=== PATIENT | female | born 1980 | race Caucasian/White ===

== ENCOUNTER 2017-05-31 12:04 | Inpatient (IN) | payer OTHER ==
[2017-05-31 13:24] VITALS: BMI 25.9
--- NOTE | 2017-05-31 14:26 | HP ---
Admission [facility] Chief Complaint: REHAB TX FOR DRUG TX Allergies/Adverse Reactions: Allergies Allergy/AdvReac Type Severity Reaction Status Date / Time No Known Allergies Allergy Verified 05/31/17 13:58 History of Present Illness: 37 Y/O H/F WITH A HX OF HEROIN DEPENDENCE SEEKING DETOX TX. PT IS IN [place]- [facility] ON METHADONE 40 MG PO DAILY. STATES LAST USE OF ALCOHOL WAS A WEEK AGO. Exam Limitations: No Limitations - Ebola screening Have you traveled outside of the country in the last 21 days: No (N) Have you had contact with anyone from an Ebola affected area: No Have you been sick,other than usual withdrawal symptoms: No Do you have a fever: No - Review of Systems Constitutional: Chills, Night Sweats, Changes in sleep EENT: reports: Blurred Vision, Tearing, Nose Congestion, Dental Problems ( CAVITY HX) Respiratory: reports: Shortness of Breath (HX ASTHMA), Wheezing Cardiac: reports: Lightheadedness GI: reports: Constipated (OIC-ON MMTP), Diarrhea, Nausea, Vomiting : reports: No Symptoms Reported Musculoskeletal: reports: Back Pain, Joint Pain (KNEES), Muscle Pain Integumentary: reports: Bruising (LOWER LEGS) Neuro: reports: Headache, Numbness, Seizure, Tingling, Unsteady Gait, Dizziness Endocrine: reports: No Symptoms Reported Hematology: reports: No Symptoms Reported Psychiatric: reports: Orientated x3, Anxious, Depressed Other Systems: Reviewed and Negative Patient History - Patient Medical History Hx Anemia: No Hx Asthma: Yes (ventolin) Hx Chronic Obstructive Pulmonary Disease (COPD): No Hx Cancer: No Hx Cardiac Disorders: No Hx Congestive Heart Failure: No Hx Hypertension: No Hx Hypercholesterolemia: No Hx Pacemaker: No HX Cerebrovascular Accident: No Hx Seizures: Yes (drug related-last episode was in 2015) Hx Dementia: No Hx Diabetes: No Hx Gastrointestinal Disorders: No Hx Liver Disease: No Hx Genitourinary Disorders: No Hx Sexually Transmitted Disorders: No Hx Renal Disease (ESRD): No Hx Thyroid Disease: No Hx Human Immunodeficiency Virus (HIV): No Hx Hepatitis C: No Hx Depression: Yes (zoloft) Hx Suicide Attempt: No Hx Bipolar Disorder: No Hx Schizophrenia: No - Patient Surgical History Past Surgical History: No Hx Neurologic Surgery: No Hx Cataract Extraction: No Hx Cardiac Surgery: No Hx Lung Surgery: No Hx Breast Surgery: No Hx Breast Biopsy: No Hx Abdominal Surgery: No Hx Appendectomy: No Hx Cholecystectomy: No Hx Genitourinary Surgery: No Hx Section: No Hx Orthopedic Surgery: No Hx Hysterectomy: No Anesthesia Reaction: No - PPD History Previous Implant?: Yes Documented Results: Positive w/o proof Results: CXR PPD to be Administered?: No - Reproductive History Patient is a Female of Child Bearing Age (11 -55 yrs old): Yes Last Menstrual Period: 05/11/17 Patient : No - Smoking Cessation Smoking history: Current every day smoker Have you smoked in the past 12 months: Yes Aproximately how many cigarettes per day: 5 Hx Chewing Tobacco Use: No Initiated information on smoking cessation: Yes 'Breaking Loose' booklet given: 05/31/17 - Substance & Tx. History Hx Alcohol Use: Yes Hx Substance Use: Yes Substance Use Type: Alcohol, Heroin Hx Substance Use Treatment: Yes (CURRENTLY AT [facility] ) - Substances Abused Heroin Route: Injection Frequency: Daily Amount used: 12-15 BAGS Age of first use: 21 Date of Last Use: 05/31/17 Alcohol Route: Oral Frequency: 1-2 times per week Amount used: Vodka unsure of amount Age of first use: 17 Family Disease History - Family Disease History Family Disease History: Heart Disease: Mother (HTN) Admission Physical Exam S - Vital Signs Vital Signs: Vital Signs - 24 hr 05/31/17 13:21 Temperature 98.1 F Pulse Rate 100 H Respiratory 18 Rate Blood Pressure 160/90 - Physical General Appearance: Yes: No Apparent Distress, Irritable, Anxious HEENTM: Yes: EOMI, Normocephalic, ALONSO, Pharynx Normal, Nasal Congestion, Rhinorrhea Respiratory: Yes: Chest Non-Tender, Lungs Clear, Normal Breath Sounds, No Respiratory Distress Neck: Yes: No masses,lesions,Nodules, Supple, Trachea in good position Breast: Yes: Breast Exam Deferred Cardiology: Yes: Regular Rhythm, Regular Rate, S1, S2 Abdominal: Yes: Normal Bowel Sounds, Non Tender, Soft Genitourinary: Yes: Other (N/C) Back: Yes: Within Normal Limits Musculoskeletal: Yes: full range of Motion, Gait Steady Extremities: Yes: Normal Range of Motion, Non-Tender Neurological: Yes: yard foreman II-XII NML intact, Fully Oriented, Alert, Motor Strength 5/5 Integumentary: Yes: Dry, Warm Lymphatic: Yes: Within Normal Limits - Diagnostic (1) Opioid dependence with withdrawal Current Visit: Yes Status: Chronic (2) Asthma Current Visit: Yes Status: Chronic Qualifiers: Asthma severity: mild Asthma persistence: unspecified Asthma complication type: uncomplicated Qualified Code(s): J45.909 - Unspecified asthma, uncomplicated; J45.909 - Unspecified asthma, uncomplicated; J45.909 - Unspecified asthma, uncomplicated (3) Nicotine dependence Current Visit: Yes Status: Acute Qualifiers: Nicotine product type: cigarettes Substance use status: in withdrawal Qualified Code(s): F17.213 - Nicotine dependence, cigarettes, with withdrawal; F17.213 - Nicotine dependence, cigarettes, with withdrawal (4) Alcohol dependence with uncomplicated withdrawal Current Visit: Yes Status: Chronic (5) Methadone maintenance therapy patient Current Visit: Yes Status: Chronic (6) Drug withdrawal seizure Current Visit: Yes Status: Suspected Qualifiers: Complication of substance-induced condition: with unspecified complication Qualified Code(s): F19.239 - Other psychoactive substance dependence with withdrawal, unspecified; F19.239 - Other psychoactive substance dependence with withdrawal, unspecified; F19.239 - Other psychoactive substance dependence with withdrawal, unspecified; R56.9 - Unspecified convulsions; R56.9 - Unspecified convulsions; R56.9 - Unspecified convulsions; R56.9 - Unspecified convulsions Cleared for Admission [facility] - Detox or Rehab Claeared for Rehab Admission: Yes S Breath Alcohol Content Breath Alcohol Content: 0 Urine Pregancy Test - Result Urine Test Results: Negative- NO Line Present Urine Drug Screen - Results Drug Screen Negative: No Urine Drug Screen Results: SAI-Cocaine, OPI-Opiates, MTD-Methadone Inpatient Rehab Admission - Initial Determination Are CD services needed?: Yes Free of communicable disease: Yes Not in need of hospitalization: Yes - Rehab Admission Criteria Previous failed treatment: Yes Patient is meeting Inpatient Rehab admission criteria:: Yes (REFERRED FROM [facility] DUE TO RELAPSE.)
[2017-05-31] MEDS ORDERED: diphenhydrAMINE HCL 50 MG CAPSULE PO PRN (14:43)
[2017-05-31] MEDS ORDERED: MAGNESIUM CITRATE 300 ML BOTTLE PO PRN (14:43)
[2017-05-31] MEDS ORDERED: IBUPROFEN 400 MG TABLET (FP) PO PRN (14:43)
[2017-05-31] MEDS ORDERED: guaiFENesin/D-METHORPHAN HB 10 ML UNIT-DOSE CUPS PO PRN (14:43)
[2017-05-31] MEDS ORDERED: MENTHOL/PHENOL 1 EACH UD MM PRN (14:43)
[2017-05-31] MEDS ORDERED: LOPERAMIDE HCL 2 MG CAPSULE PO PRN (14:43)
[2017-05-31] MEDS ORDERED: MAGNESIUM HYDROX 2400MG/30ML ORAL SUSPENSION 30 ML CUP PO PRN (14:43)
[2017-05-31] MEDS ORDERED: MAG HYDROX/AL HYDROX/SIMETH 30 ML UNIT-DOSE CUP PO PRN (14:43)
[2017-05-31] MEDS ORDERED: ACETAMINOPHEN 325 MG TABLET (FP) PO PRN (14:43)
[2017-05-31] MEDS ORDERED: P-EPHED 60MG/TRIPROLIDI 2.5MG TABLET PO PRN (14:43)
[2017-05-31] MEDS ORDERED: ALBUTEROL SO4 18 GM HFA INHALER IH PRN (14:48)
[2017-05-31] MEDS ORDERED: NICOTINE POLACRILEX 2 MG GUM BUC PRN (14:48)
[2017-05-31] MEDS ORDERED: PATIENT'S OWN MEDICATION (NON-FORMULARY) (Prednisone [Prednisone 50 Mg Tablets] 50 MG) PO SCH (15:00)
[2017-05-31] MEDS: NICOTINE 14 MG/24 HOURS TOPICAL PATCH TD SCH (15:30)
[2017-05-31] MEDS ORDERED: PNEUMOC 13-VAL CONJ-DIP CRM/PF 0.5 ML DISP.SYRIN IM ONE (16:11)
[2017-05-31 17:49] LABS: MCH 28.8 pg (25.7-33.7); MCHC 33.3 g/dl (32.0-36.0); MEAN CELL VOLUME 86.6 fl (80-96); MEAN PLT VOLUME 7.6 fl (7.5-11.1); PLATELET COUNT 324 K/MM3 (134-434); RDW 14.4 % (11.6-15.6); WHITE BLOOD COUNT 9.2 K/mm3 (4.0-10.0)
[2017-05-31] MEDS: PREDNISONE 40 MG, PREDNISONE 10 MG PO SCH (17:55)
[2017-05-31 18:07] LABS: URINE APPEARANCE CLOUDY; URINE BILIRUBIN NEGATIVE (NEGATIVE); URINE BLOOD NEGATIVE (NEGATIVE); URINE COLOR YELLOW; URINE GLUCOSE (UA) NEGATIVE (NEGATIVE); URINE KETONE NEGATIVE (NEGATIVE); URINE NITRITE NEGATIVE (NEGATIVE); URINE PROTEIN NEGATIVE (NEGATIVE); URINE UROBILINOGEN NEGATIVE mg/dL (0.2-1.0)
[2017-05-31 18:12] LABS: ALBUMIN 3.7 g/dl (3.4-5.0); ANION GAP 9 (8-16); CALCIUM 8.9 mg/dL (8.5-10.1); CO2 27 mmol/L (21-32); CREATININE 0.7 mg/dL (0.55-1.02); GLUCOSE,RANDOM 80 mg/dL (74-106); SGOT/AST 19 U/L (15-37); SGPT/ALT 32 U/L (12-78)
[2017-05-31 18:14] LABS: ALK PHOS 84 U/L (45-117); BILIRUBIN,TOTAL 0.5 mg/dL (0.2-1.0); TOT PROT 7.4 g/dl (6.4-8.2)
[2017-05-31] MEDS ORDERED: predniSONE 20 MG TABLET (UD) ONE (18:31)
[2017-05-31] MEDS: FLUTICASONE PROP 0.05% 16 GM NASAL SPRAY NS SCH (21:14)
[2017-05-31 22:00] LABS: URINE LEUK ESTERASE TRACE (NEGATIVE)
[2017-05-31] MEDS ORDERED: THIAMINE HCL 100 MG TABLET (FP) PO SCH (22:00)
[2017-05-31] MEDS: BUDESONIDE/FORMETEROL FUMARATE 160/4.5 mcg INHALER IH SCH (23:20)
[2017-06-01] MEDS ORDERED: TRIMETHOBENZAMIDE HCL 200MG/2ML INJ IM PRN (05:55)
[2017-06-01 07:54] VITALS: BP 113/73; PULSE 83; TEMP 97.7
[2017-06-01] MEDS ORDERED: METHADONE HCL 40 MG DISPERSABLE TABLET PO SCH (08:18)
[2017-06-01] MEDS ORDERED: PT OWN MED DRAWER 7, Y5N ONE (08:22)
--- NOTE | 2017-06-01 08:39 | PN ---
[facility] Progress Note Note: Rapid Response CAlled: patient was speaking with nure asking to go to ED radha she lost consciousness and rapid response called, she quickly regained consciousness, c/o zaeb pain and abdo pain with somewhat labored breathing o/e diffuse wheezing, VSS 134/85 o2 sat 100% on o2 mask pulse 75 rr 14 pateint deveoped second episode when she went quiet eyes rolled back but no seizure like activity noted. started vomiting on arrival of 911 a/p: r/o withdrawal seizures, acute asthma unlikely. Has not had AM methadone dose. ED notified s/w anabell Quintero staff informed will be transferred to [facility].
--- NOTE | 2017-06-01 09:40 | PN ---
[facility] Progress Note Note: Patient was transferred to ER of [facility] after seizure episode.See medical staff notes for details.
--- NOTE | 2017-06-01 09:50 | EKG ---
Test Reason : Blood Pressure : / mmHG Vent. Rate : 080 BPM Atrial Rate : 080 BPM P-R Int : 194 ms QRS Dur : 084 ms QT Int : 376 ms P-R-T Axes : 037 -27 008 degrees QTc Int : 433 ms NORMAL SINUS RHYTHM POOR R WAVE PROGRESSION NO PREVIOUS ECGS AVAILABLE Confirmed by JUAN JOSÉ HENDERSON MD ([id number]) on 06/01/2017 9:50:34 AM Referred By: Confirmed By:JUAN JOSÉ HENDERSON MD
[2017-06-01] MEDS: NICOTINE 14 MG/24 HOURS TOPICAL PATCH TD SCH (10:00)
[2017-06-01] MEDS ORDERED: PRENATAL VITAMINS W/ FOLIC ACID TABLET (FP) PO SCH (10:00)
[2017-06-01] MEDS: PREDNISONE 40 MG, PREDNISONE 10 MG PO SCH (10:00)
[2017-06-01] MEDS: FLUTICASONE PROP 0.05% 16 GM NASAL SPRAY NS SCH (10:00)
[2017-06-01] MEDS: BUDESONIDE/FORMETEROL FUMARATE 160/4.5 mcg INHALER IH SCH (10:00)
[2017-06-01 10:28] LABS: HIV 1 & 2 AB NEGATIVE; HIV 1 AGp24 NEGATIVE
[2017-06-01] MEDS ORDERED: PNEUMOCOCCAL 23 VACCINE 0.5 ML VIAL IM ONE (12:00)
[2017-06-01] MEDS ORDERED: FLU VACCINE QUAD 60 MCG/0.5 ML (MDV 17-18) IM ONE (12:00)
== END 2017-06-01 17:22 | disposition hospice, inpatient (51) | DRG 772 ==
LOC: YASAS 12:04 → Y3E 14:22
PROVIDERS: ADMIT Psychiatry & Neurology Psychiatry; ATTEND Psychiatry & Neurology Psychiatry
PROC: HZ42ZZZ Group Counseling for Substance Abuse Treatment, Cognitive-Behavioral (ICD-10-PCS; principal; 2017-05-31)
DX: F11.23 Opioid dependence with withdrawal (principal); F10.239 Alcohol dependence with withdrawal, unspecified; F17.210 Nicotine dependence, cigarettes, uncomplicated; J45.909 Unspecified asthma, uncomplicated; R55 Syncope and collapse; G40.89 Other seizures; R07.9 Chest pain, unspecified; R10.9 Unspecified abdominal pain; R06.02 Shortness of breath
CPT/HCPCS: 36415; 80053; 81003; 81015; 85027; 86593; 87389; 93005; 93010

== ENCOUNTER 2017-06-01 09:15 | Inpatient (IN) | payer OTHER ==
--- NOTE | 2017-06-01 09:25 | PDOC ---
History of Present Illness - General History Source: Patient Exam Limitations: No Limitations - History of Present Illness Initial Comments: 06/01/17 10:33 37 yr old female, with significant pmhx of polysubstance abuse (heroin, alcohol , xanax), asthma and alcohol withdrawal seizures, who presents today BIBA from [facility] s/p witnessed seizure. Security at [facility] witnessed the patient seizing in her bed this morning. EMS administered 4 mg of IV zofran in field. No injuries, no head trauma. The patient states that she also experienced multiple episodes of vomiting this morning since 6am. She notes that she had seizures when withdrawing previously, with the most recent being approximately 6 months ago. The last time she used heroin was last night and she drank alcohol 2 days ago. She usually drinks a half a pint per day. The patient started going to the methadone clinic at [facility] in [place] 2 weeks ago. She has not had her Methadone dose today. Denies fever, chills. Denies chest pain, SOB. Denies visual changes. Allergies: none reported <Cherelle Robb - Last Filed: 06/01/17 12:58> <Jaylene Cox - Last Filed: 06/01/17 14:02> - General Stated Complaint: SEIZURE Time Seen by Provider: 06/01/17 09:22 Past History <Cherelle Robb - Last Filed: 06/01/17 12:58> - Past Medical History Anemia: No Asthma: Yes Cancer: No Cardiac Disorders: No CVA: No COPD: No CHF: No Dementia: No Diabetes: No GI Disorders: Yes (Gastritis) Disorders: No HTN: No Hypercholesterolemia: No Kidney Stones: No Liver Disease: No Seizures: Yes (with withdrawal ) Thyroid Disease: No - Surgical History Abdominal Surgery: No Appendectomy: No Cardiac Surgery: No Cholecystectomy: No Lung Surgery: No Neurologic Surgery: No Orthopedic Surgery: No - Reproductive History PID: No - Suicide/Smoking/Psychosocial Hx Smoking History: Current every day smoker Have you smoked in the past 12 months: Yes Number of Cigarettes Smoked Daily: 5 'Breaking Loose' booklet given: 05/31/17 Hx Alcohol Use: Yes Drug/Substance Use Hx: Yes Substance Use Type: Alcohol, Heroin Hx Substance Use Treatment: Yes <Jaylene Cox - Last Filed: 06/01/17 14:02> - Past Medical History Allergies/Adverse Reactions: Allergies Allergy/AdvReac Type Severity Reaction Status Date / Time No Known Allergies Allergy Verified 05/31/17 13:58 Home Medications: Ambulatory Orders Albuterol Sulfate Inhaler - [Ventolin HFA Inhaler -] 2 inh PO Q4H PRN #1 inhaler 02/02/16 Budesonide/Formeterol Fumarate [SYMBICORT 160/4.5mcg -] 1 inh PO BID #1 inhaler 02/02/16 Fluticasone Propionate [Flonase Allergy Relief] 1 spray NS ASDIR 05/31/17 Omeprazole 40 mg PO DAILY 05/31/17 Prednisone [Prednisone 50 MG TABLETS] 50 mg PO DAILY 05/31/17 Quetiapine Fumarate [Seroquel -] 100 mg PO HS 05/31/17 Trazodone HCl [Desyrel -] 50 mg PO HS 05/31/17 Methadone [Dolophine -] 40 mg PO DAILY 06/01/17 Review of Systems - Review of Systems Able to Perform ROS?: Yes Comments:: 06/01/17 10:35 GENERAL/CONSTITUTIONAL: No fever or chills. No weakness. HEAD, EYES, EARS, NOSE AND THROAT: No change in vision. No ear pain or discharge. No sore throat. GASTROINTESTINAL: +nausea, +vomiting. No diarrhea or constipation. GENITOURINARY: No dysuria, frequency, or change in urination. CARDIOVASCULAR: No chest pain or shortness of breath. RESPIRATORY: No cough, wheezing, or hemoptysis. MUSCULOSKELETAL: No joint or muscle swelling or pain. No neck or back pain. SKIN: No rash NEUROLOGIC: +seizure. No headache, vertigo, or change in strength/sensation. ENDOCRINE: No increased thirst. No abnormal weight change. HEMATOLOGIC/LYMPHATIC: No anemia, easy bleeding, or history of blood clots. ALLERGIC/IMMUNOLOGIC: No hives or skin allergy. <Cherelle Robb - Last Filed: 06/01/17 12:58> *Physical Exam - Vital Signs Last Vital Signs Temp Pulse Resp BP Pulse Ox 99.2 F 57 L 19 128/64 06/01/17 09:30 06/01/17 09:30 06/01/17 09:30 06/01/17 09:30 - Physical Exam Comments: 06/01/17 10:36 Constitutional: Awake, alert, oriented. Appears uncomfortable. Head: Normocephalic. Atraumatic Eyes: PERRL. EOMI. Conjunctivae are not pale. ENT: Mucous membranes are moist and intact. Posterior pharynx without exudates or erythema. Uvula midline. Neck: Supple. Full ROM. No lymphadenopathy. Cardiovascular: Regular rate. Regular rhythm. S1, S2 regular. Distal pulses are 2+ and symmetric. Pulmonary/Chest: No evidence of respiratory distress. Clear to auscultation bilaterally No wheezing, rales or rhonchi. Abdominal: Mild epigastric tenderness to palpation. Soft and non-distended. No rebound, guarding or rigidity. No organomegaly. No palpable masses. Good bowel sounds. Back: No CVA tenderness. Musculoskeletal: No edema. No cyanosis. No clubbing. Full range of motion in all extremities. Nocalf tenderness. Radial/pedal pulses are intact and 2+ bilaterally Skin: Skin is warm and dry. No petechiae. No purpura. Neurological: Alert and oriented to person, place, and time. Cranial nerves II -XII are grossly intact. Normal speech. Strength is grossly symmetric. No sensory deficits. Psychiatric: Good eye contact. Normal interaction, affect and behavior. <Cherelle Robb - Last Filed: 06/01/17 12:58> Heart Score/ECG Review - ECG Intrepretation Comment:: 06/01/17 10:30 sinus at 67, nl axis, t wave inversions III, avf, poor r wave progression <Jaylene Cox - Last Filed: 06/01/17 14:02> ED Treatment Course - LABORATORY CBC & Chemistry Diagram: 06/01/17 10:40 06/01/17 10:40 - Medications Given in the ED: ED Medications Discontinued Medications Generic Name Dose Route Start Last Admin Trade Name Freq PRN Reason Stop Dose Admin Famotidine/Sodium Chloride 50 mls @ 100 mls/hr 06/01/17 09:51 06/01/17 10:33 Pepcid 20 Mg Premixed Ivpb - IVPB 06/01/17 10:20 100 mls/hr ONCE ONE Administration Ondansetron HCl 4 mg 06/01/17 09:51 06/01/17 10:33 Zofran Injection IVPUSH 06/01/17 09:52 4 mg ONCE ONE Administration Sodium Chloride 1,000 ml 06/01/17 09:51 06/01/17 10:30 Normal Saline - IV 06/01/17 09:52 1,000 ml ONCE ONE Administration <Cherelle Robb - Last Filed: 06/01/17 12:58> - LABORATORY CBC & Chemistry Diagram: 06/01/17 10:40 06/01/17 10:40 <Jaylene Cox - Last Filed: 06/01/17 14:02> Medical Decision Making - Medical Decision Making 06/01/17 10:25 a/p: 37yo female with polysubstance abuse (15bags heroin, xanax, half a fifth) with seizure at detox today -hx of alcohol withdrawal seizures -last etoh use 2 days ago -currently no longer post ictal -was post ictal per EMS -labs, ekg, cxr, lipase, ivf hydration, dose methadone, nausea control, ativan for nausea and ETOH withdrawal seizure. 06/01/17 12:57 pt with persistent n/v and had an alcohol withdrawal seizure. unable to tolerate PO intake. Will admit for further treatment. 06/01/17 14:00 case discussed with IM resident, accepts pt under Dr. Wagoner. Will admit for intracatble n/v and alcohol withdrawal seizure this am. <Jaylene Cox - Last Filed: 06/01/17 14:02> *DC/Admit/Observation/Transfer - Attestations Scribe Attestion: 06/01/17 10:37 Documentation prepared by TODD Rios, acting as anesthesiology medical doctor for Jaylene Cox DO. <Cherelle Robb - Last Filed: 06/01/17 12:58> - Discharge Dispostion Admit: Yes - Attestations Physician Attestion: 06/01/17 14:02 I, Dr. Jaylene Cox DO, attest that this document has been prepared under my direction and personally reviewed by me in its entirety. I further attest, that it accurately reflects all work, treatment, procedures and medical decision -making performed by me. <Jaylene Cox - Last Filed: 06/01/17 14:02> Diagnosis at time of Disposition: Seizure, Intractable vomiting with nausea, Methadone maintenance therapy patient - Discharge Dispostion Condition at time of disposition: Fair
[2017-06-01 09:33] VITALS: BMI 25.9
[2017-06-01] MEDS ORDERED: FAMOTIDINE 20 MG/50 ML IVPB 50 ML IVPB ONE ×3 (09:51→22:00)
[2017-06-01] MEDS ORDERED: ONDANSETRON 4 MG/2 ML VIAL IVPUSH ONE (09:51)
[2017-06-01] MEDS ORDERED: SODIUM CHLORIDE 0.9% 1000 ML INFUS.BAG IV ONE (09:51)
[2017-06-01] MEDS ORDERED: ONDANSETRON 4 MG/2 ML VIAL ONE (10:11)
[2017-06-01] MEDS ORDERED: THIAMINE HCL 200 MG/2 ML VIAL IVPB ONE (10:14)
[2017-06-01] MEDS ORDERED: DICYCLOMINE HCL 20 MG/2 ML AMPUL IM ONE (10:15)
[2017-06-01] MEDS ORDERED: FOLIC ACID 1 MG TABLET (FP) PO ONE (10:16)
[2017-06-01] MEDS ORDERED: METHADONE HCL 10 MG TABLET PO ONE (10:16)
[2017-06-01] MEDS ORDERED: LORazepam 2 MG/ML SDV VIAL ONE ×2 (10:39→13:01)
[2017-06-01] MEDS ORDERED: THIAMINE HCL 200 MG/2 ML VIAL ONE (10:39)
[2017-06-01] MEDS ORDERED: FOLIC ACID 1 MG TABLET (FP) ONE (10:40)
[2017-06-01 11:24] LABS: BASOPHIL 0.3 % (0-2.0); EOSINOPHIL 0.1 % (0-4.5); MCH 27.9 pg (25.7-33.7); MCHC 32.2 g/dl (32.0-36.0); MEAN CELL VOLUME 86.6 fl (80-96); MEAN PLT VOLUME 7.1 fl (7.5-11.1); NEUTROPHILS 87.2 % (42.8-82.8); PLATELET COUNT 331 K/MM3 (134-434); RDW 14.3 % (11.6-15.6); WHITE BLOOD COUNT 18.7 K/mm3 (4.0-10.0)
[2017-06-01 11:38] LABS: ALBUMIN 3.6 g/dl (3.4-5.0); ANION GAP 10 (8-16); CALCIUM 9.3 mg/dL (8.5-10.1); CO2 22 mmol/L (21-32); CREATININE 0.7 mg/dL (0.55-1.02); GLUCOSE,RANDOM 103 mg/dL (74-106); SGPT/ALT 30 U/L (12-78)
[2017-06-01 11:40] LABS: ALK PHOS 84 U/L (45-117); BILIRUBIN,TOTAL 0.8 mg/dL (0.2-1.0); TOT PROT 7.5 g/dl (6.4-8.2)
[2017-06-01 11:41] LABS: MAGNESIUM 2.2 mg/dL (1.8-2.4); SGOT/AST 26 U/L (15-37)
--- NOTE | 2017-06-01 12:01 | EKG ---
Test Reason : Blood Pressure : / mmHG Vent. Rate : 067 BPM Atrial Rate : 067 BPM P-R Int : 170 ms QRS Dur : 092 ms QT Int : 412 ms P-R-T Axes : 013 -27 -06 degrees QTc Int : 435 ms NORMAL SINUS RHYTHM WITH SINUS ARRHYTHMIA POOR R WAVE PROGRESSION WHEN COMPARED WITH ECG OF 31-MAY-2017 20:03, NO SIGNIFICANT CHANGE WAS FOUND Confirmed by JUAN JOSÉ HENDERSON MD ([id number]) on 06/01/2017 12:01:05 PM Referred By: Confirmed By:JUAN JOSÉ HENDERSON MD
[2017-06-01] MEDS ORDERED: METHADONE HCL 10 MG TABLET ONE (12:05)
--- NOTE | 2017-06-01 14:21 | HP ---
CHIEF COMPLAINT: ETOH withdrawal seizure this morning PCP:Dr. Kevin in [place] HISTORY OF PRESENT ILLNESS: 37 yr old woman with asthma, polysubstance abuse transferred from [facility] due to witnessed seizure with urinary incontinence at 8AM. She was admitted to [facility] yesterday at 2pm. She has been drinking 1/2 pint of vodka occasionally mixed with beer for past week, "3 pills of large xanax" Wed night and 5 bags of IV heroin daily. Last use of vodka/heroin and xanax was sunday. She has been having intermittent vomiting throughout the week. She started drinking 1 week ago because of depressive symptoms. She thinks she have fallen but does not know, there is a possibility of LOC. A/w headache, blurry vision, trouble swallowing to solid food due to the persistent vomiting and increase in urine frequency. recently seen at [facility] ED for asthma exacerbation last week, she was supposed to be on perdnisone 40mg po daily for 4 days but she never took it and was started on it at [facility]. ER course was notable for: (1) thiamine/folate (2) IVF (3) pepcid Recent Travel: [facility] PAST MEDICAL HISTORY: asthma, depression, polysubstance abuse PAST SURGICAL HISTORY: denies Social History: Smoking: daily Alcohol: daily Drugs: heroin, methadone Family History: both parents, 5 sisters and one 6-yr old daughter all healthy. denies fhx of htn, dm, psych conditions, Allergies No Known Allergies Allergy (Verified 05/31/17 13:58) HOME MEDICATIONS: Home Medications Medication Instructions Recorded Albuterol Sulfate Inhaler - 2 inh PO Q4H PRN #1 inhaler 02/02/16 [Ventolin HFA Inhaler -] Budesonide/Formeterol Fumarate 1 inh PO BID #1 inhaler 02/02/16 [SYMBICORT 160/4.5mcg -] Fluticasone Propionate [Flonase 1 spray NS ASDIR 05/31/17 Allergy Relief] Omeprazole 40 mg PO DAILY 05/31/17 Prednisone [Prednisone 50 MG 50 mg PO DAILY 05/31/17 TABLETS] Quetiapine Fumarate [Seroquel -] 100 mg PO HS 05/31/17 Trazodone HCl [Desyrel -] 50 mg PO HS 05/31/17 Methadone [Dolophine -] 40 mg PO DAILY 06/01/17 REVIEW OF SYSTEMS CONSTITUTIONAL: Absent: fever, chills, diaphoresis, generalized weakness, malaise, loss of appetite, weight change HEENT: Present: difficulty swallowing, Absent: rhinorrhea, nasal congestion, throat pain, throat swelling, mouth swelling, ear pain, eye pain, visual changes CARDIOVASCULAR: Absent: chest pain, syncope, palpitations, irregular heart rate, lightheadedness , peripheral edema RESPIRATORY: Absent: cough, shortness of breath, dyspnea with exertion, orthopnea, wheezing, stridor, hemoptysis GASTROINTESTINAL: Present: nausea, vomiting, Absent: abdominal pain, abdominal distension, diarrhea, constipation, melena, hematochezia GENITOURINARY: Present: urinary frequency Absent: dysuria,, urgency, hesitancy, hematuria, flank pain, genital pain MUSCULOSKELETAL: Absent: myalgia, arthralgia, joint swelling, back pain, neck pain SKIN: Absent: rash, itching, pallor HEMATOLOGIC/IMMUNOLOGIC: Absent: easy bleeding, easy bruising, lymphadenopathy, frequent infections ENDOCRINE: Absent: unexplained weight gain, unexplained weight loss, heat intolerance, cold intolerance NEUROLOGIC: Present: headache, bladder incontenence post-seizure Absent: focal weakness or paresthesias, dizziness, unsteady gait, seizure, mental status changes, bowel incontinence PSYCHIATRIC: Absent: anxiety, depression, suicidal or homicidal ideation, hallucinations. PHYSICAL EXAMINATION GENERAL: Awake, alert, in no acute distress. HEAD: Normal with no signs of trauma. EYES: Pupils equal, round and reactive to light, extraocular movements intact, sclera anicteric, conjunctiva clear. No lid lag. EARS, NOSE, THROAT: oropharynx clear without exudates. dry mucous membranes. mildly erythematic pharynx NECK: Normal range of motion, supple without lymphadenopathy, JVD, or masses. right lower neck with hyperpigmented puncture site where pt injects heroin. LUNGS: Breath sounds equal, clear to auscultation bilaterally. fine expiratory wheezes R>L, quiet at bases. No accessory muscle use. HEART: Regular rate and rhythm, normal S1 and S2 without murmur, rub or gallop. ABDOMEN: Soft, tender in epigastrium and LLQ, not distended, normoactive bowel sounds, no guarding, no rebound, no masses. No hepatomegaly or splenomegaly. carter's negative, rovsings neg, obturator and psoas neg. MUSCULOSKELETAL: Normal range of motion at all joints. No bony deformities or tenderness. + CVA on left. right buttox TTP, right hip TTP. overlying skin intact, no erythema, no swelling/bruises. posterior left knee ttp, no swelling/ bruising noted, skin intact. no calf tenderness b/l. UPPER EXTREMITIES: 2+ radial pulses, warm, well-perfused. No cyanosis. No clubbing. No peripheral edema. right forearm with well-healed scar. LOWER EXTREMITIES: 2+ distal pulses, warm, well-perfused. 1+ peripheral edema. NEUROLOGICAL: Cranial nerves II-XII intact. Normal speech. facial symmetry, b/l : 5/5 handgrip, 4/5 b/l hip extension, 5/5 dorsi/plantar flexion, 5/5 knee extension/flexion. PSYCHIATRIC: Cooperative. Good eye contact. Appropriate mood and affect. SKIN: Warm, dry, normal turgor, no rashes or lesions noted, normal capillary refill. Active Medications Chlordiazepoxide HCl (Librium -) 25 mg PO Q4H PRN PRN Reason: WITHDRAWAL(CONT SUBST) Stop: 06/04/17 14:23 Chlordiazepoxide HCl (Librium -) 50 mg PO [id number] [facility] Stop: 06/02/17 11:01 Chlordiazepoxide HCl (Librium -) 25 mg PO [id number] [facility] Stop: 06/03/17 11:01 Chlordiazepoxide HCl (Librium -) 15 mg PO [id number] [facility] Stop: 06/04/17 11:01 Enoxaparin Sodium (Lovenox -) 40 mg SQ DAILY [facility] Sodium Chloride (Normal Saline -) 1,000 mls @ 125 mls/hr IV ASDIR [facility] Last Admin: 06/01/17 14:42 Dose: 125 mls/hr Famotidine/Sodium Chloride (Pepcid 20 Mg Premixed Ivpb -) 50 mls @ 100 mls/hr IVPB ONCE ONE Stop: 06/01/17 22:29 Multivitamins/Minerals (Theragran-M) 1 each PO DAILY [facility] Prochlorperazine Edisylate (Compazine Injection -) 2.5 mg IVPB Q4H PRN PRN Reason: NAUSEA AND/OR VOMITING Last Admin: 06/01/17 16:59 Dose: 2.5 mg Quetiapine Fumarate (Seroquel -) 100 mg PO HS [facility] Thiamine HCl (Vitamin B1 -) 100 mg PO DAILY [facility] Trazodone HCl (Desyrel -) 50 mg PO HS [facility] ASSESSMENT/PLAN: 37 yr old woman with asthma, polysubstance abuse presents with withdrawal seizure and intractable vomiting likely due to polysubstance withdrawal. #ETOH - CIWA 9/persistent vomiting - librium taper for withdrawals - PO challenge with regular diet - combizene prn for nausea - monitor on tele for further seizure activity - thiamine and MVI - IVF NS @125cc/hr #Polysubstance withdrawal - etoh: librium taper - heroin: methadone 50mg, confirmed [place] jf [phone] by ED - nicotine: defer for now, pt not requesting - consult Dr. Reyez #Asthma - breathing RA comfortable, 100% sat, defer prednisone for now #Leucocytosis - likely reactive to vomiting/in setting of recent steroid use. - patient is afebrile without s/s of infection(no cough, diarrhea, dysuria) - defer abx for now #Depression - trazodone 50mg po daily - sertraline 100mg po daily - denies SI #diet: regular #Dvt: lovenox daily #Dispo: if no further seizure activity and no electrolyte abnormalities can be transferred to [facility] in the AM to continue detox Visit type - Emergency Visit Emergency Visit: Yes ED Registration Date: 06/01/17 Care time: The patient presented to the Emergency Department on the above date and was hospitalized for further evaluation of their emergent condition. - New Patient This patient is new to me today: Yes Date on this admission: 06/01/17 - Critical Care Critical Care patient: No
[2017-06-01] MEDS ORDERED: chlordiazePOXIDE HCL 25 MG CAPSULE PO PRN (14:24)
[2017-06-01] MEDS ORDERED: SODIUM CHLORIDE 1,000 ML IV SCH (14:30)
[2017-06-01] MEDS: PROCHLORPERAZINE INJECTION 10 MG/2 ML VIAL IVPB PRN ×2 (16:59→22:03)
--- NOTE | 2017-06-01 17:39 | PN ---
Teaching Attending Note Name of Resident: Arjun Young ATTENDING PHYSICIAN STATEMENT I saw and evaluated the patient. I reviewed the resident's note and discussed the case with the resident. I agree with the resident's findings and plan as documented. SUBJECTIVE:37yo F with PMH continuous polysubstance dependence (ETOH, xanax and heroin IV) went to [facility] for detox yesterday. Today had witnessed seizure with urinary incontinence. pt has no recollection of what happened. admits to intermittent vomiting over the past week. She was at another hospital a week ago and was supposed to take steroids for which she never did. she states her last drink and xanax was 2 days ago. Last used heroin yesterday (10 bags IV). states she had a seizure 2 years ago after stopping BZD. that she has stopped drinking several times without having a seizure. admits to feeling anxious at this time. denies CP, SOB, fever, chills, auditory/visual/tactile hallucinations. OBJECTIVE: Last Vital Signs Temp Pulse Resp BP Pulse Ox 98.4 F 64 17 136/84 96 06/01/17 14:52 06/01/17 14:52 06/01/17 14:52 06/01/17 14:52 06/01/17 14:52 General lethargic, mildly anxious CV S1 S2 RRR no murmur/rub/gallop Lungs CTA B/L no wheezing/rales/rhonchi Abdomen soft NT/ND no rebound or guarding Extremities +tremors ASSESSMENT AND PLAN: 37yo F with PMH depression and continuous polysubstance dependence (ETOH, xanax and heroin IV) on methadone was sent from [facility] after witnessed seizure 1. Witnessed seizure- withdrawal from ETOH vs BZD. tele admission. continuos cardiac monitoring. aspiration precautions, seizure precautions. no indication for antieleptics at this time. pt has desire to be clean and stop using. if pt is unable to maintain sobriety will need to consider prophylactic antieleptics 2. Acute heroin/ETOH withdrawal-CIWA 11. started on librium taper. on methadone taper per [facility] Gonzales on 50mg, will consult detox. counseled on need for cessation. received banana bag in the ER. will continue IVF, thiamine, folate, MVI. will transfer back to [facility] once medically optimized 3. Leukocytosis- likely reactive. was given steroid dose yesterday. pt is afebrile. no sign of infection. CXR clear. no indication for abx at this time 4. Depression- resume home medications. QTc WNL 5. DVT ppx- lovenox 6. if remains seizure free x24H will send to [facility] tomorrow to complete detox and inpatient rehab
[2017-06-01] MEDS: chlordiazePOXIDE HCL 25 MG CAPSULE PO SCH ×2 (17:52→22:08)
--- NOTE | 2017-06-01 17:59 | CONSULT ---
Consult Detox [facility] Reason for Current Admission/Consult: alcohol withdrawal seizures - Alcohol/Substance Use Hx Alcohol Use: Yes - Past Medical History ...LMP: 05/11/17
[2017-06-01 18:43] LABS: URINE APPEARANCE CLEAR; URINE BILIRUBIN NEGATIVE (NEGATIVE); URINE BLOOD NEGATIVE (NEGATIVE); URINE COLOR YELLOW; URINE GLUCOSE (UA) NEGATIVE (NEGATIVE); URINE KETONE 1+ (NEGATIVE); URINE NITRITE NEGATIVE (NEGATIVE); URINE PROTEIN NEGATIVE (NEGATIVE); URINE UROBILINOGEN NEGATIVE mg/dL (0.2-1.0)
[2017-06-01 21:50] LABS: URINE LEUK ESTERASE Negative (NEGATIVE)
[2017-06-01] MEDS ORDERED: QUEtiapine FUMARATE 50 MG TABLET PO SCH (22:00)
[2017-06-01] MEDS ORDERED: traZODone HCL 50 MG TABLET (FP) PO SCH (22:00)
[2017-06-02] MEDS: chlordiazePOXIDE HCL 25 MG CAPSULE PO SCH ×2 (05:56→11:25)
[2017-06-02 07:25] LABS: BASOPHIL 0.5 % (0-2.0); MCHC 32.6 g/dl (32.0-36.0); MEAN CELL VOLUME 85.7 fl (80-96); MEAN PLT VOLUME 6.9 fl (7.5-11.1); PLATELET COUNT 306 K/MM3 (134-434); RDW 14.5 % (11.6-15.6)
[2017-06-02 08:05] LABS: ANION GAP 10 (8-16); CALCIUM 7.9 mg/dL (8.5-10.1); CO2 23 mmol/L (21-32); GLUCOSE,RANDOM 79 mg/dL (74-106)
[2017-06-02 08:08] LABS: CREATININE 0.8 mg/dL (0.55-1.02)
[2017-06-02 09:13] VITALS: BP 126/76; PULSE 66; TEMP 98.6
--- NOTE | 2017-06-02 09:21 | DS ---
Physical Exam: SUBJECTIVE: Patient seen and examined. asymptomatic. denies CP, SOB, fever, chills, N/V/C/D recalls most of the events yesterday but not the seizure. states she was at [facility] and had intractable vomiting and was sent here for evaluation. was told she had a seziure but does not recall that. OBJECTIVE: Vital Signs Period Temp Pulse Resp BP Sys/Waller Pulse Ox Last 24 Hr 98.4 F-99 F 64-90 17-18 104-136/66-84 96-100 PHYSICAL EXAM GENERAL: The patient is drowsy but easily arrousable to verbal stimuli, oriented x3, alert, and fully oriented, in no acute distress. HEAD: Normal with no signs of trauma. EYES: PERRL, extraocular movements intact, sclera anicteric, conjunctiva clear. ENT: Ears normal, nares patent, oropharynx clear without exudates, moist mucous membranes. NECK: Trachea midline, full range of motion, supple. LUNGS: Breath sounds equal, clear to auscultation bilaterally, no wheezes, no crackles, no accessory muscle use. HEART: Regular rate and rhythm, S1, S2 without murmur, rub or gallop. ABDOMEN: Soft, nontender, nondistended, normoactive bowel sounds, no guarding, no rebound, no hepatosplenomegaly, no masses. EXTREMITIES: 2+ pulses, warm, well-perfused, no edema. NEUROLOGICAL: Cranial nerves II through XII grossly intact. Normal speech, gait not observed. PSYCH: Normal mood, normal affect. SKIN: Warm, dry, normal turgor, no rashes or lesions noted. LABS Laboratory Results - last 24 hr 06/01/17 06/02/17 06/02/17 17:12 06:45 06:45 WBC 12.0 H D RBC 4.68 Hgb 13.1 Hct 40.1 MCV 85.7 MCH 28.0 MCHC 32.6 RDW 14.5 Plt Count 306 MPV 6.9 L Neutrophils % 75.0 Lymphocytes % 17.8 D Monocytes % 5.7 Eosinophils % 1.0 D Basophils % 0.5 Sodium 140 Potassium 3.6 Chloride 107 Carbon Dioxide 23 Anion Gap 10 BUN 14 Creatinine 0.8 Random Glucose 79 D Calcium 7.9 L Urine Color Yellow Urine Appearance Clear Urine pH 6.0 Ur Specific Mary D >= 1.030 H Urine Protein Negative Urine Glucose (UA) Negative Urine Ketones 1+ H Urine Blood Negative Urine Nitrite Negative Urine Bilirubin Negative Urine Urobilinogen Negative Ur Leukocyte Esterase Negative Urine HCG, Qual Negative HOSPITAL COURSE: Date of Admission:06/01/17 Date of Discharge: 06/02/17 admitting diagnosis: ETOH withdrawal seizure, ETOH withdrawals Pre hospital course 37yo F with PMH continuous polysubstance dependence (ETOH, xanax and heroin IV) went to [facility] for detox yesterday. Today had witnessed seizure with urinary incontinence. pt has no recollection of what happened. admits to intermittent vomiting over the past week. She was at another hospital a week ago and was supposed to take steroids for which she never did. she states her last drink and xanax was 2 days ago. Last used heroin yesterday (10 bags IV). states she had a seizure 2 years ago after stopping BZD. that she has stopped drinking several times without having a seizure. admits to feeling anxious at this time. denies CP, SOB, fever, chills, auditory/visual/tactile hallucinations. Subsequent hospital course Admitted to [facility] for continuous cardiac monitoring. no witnessed seizures while hospitalized. pt was IV hydrated and continued on librium taper and methadone that was confirmed at [facility]. no repeat episodes while in the hospital. no events on cardiac monitoring. diet was advanced and tolerated. evaluated by detox specialist here. pt was d/c to return to [facility] to continue detox and then inpatient rehab. pt was counseled on need for drug abstinence. Minutes to complete discharge: 40 Discharge Summary Reason For Visit: INTRACTABLE VOMITING WITH NAUSEA Current Active Problems Intractable nausea and vomiting (Acute) Nicotine dependence (Acute) Seizure (Acute) Alcohol dependence with uncomplicated withdrawal (Chronic) Asthma (Chronic) Methadone maintenance therapy patient (Chronic) Opioid dependence with withdrawal (Chronic) Condition: Fair - Instructions Diet, Activity, Other Instructions: You were admitted to the hospital due to a seizure you had at [facility]. This likely occurred as you stopped drinking alcohol and xanax. The best way to prevent this from happening again in the future is to NOT drink alcohol or use any other illicit substances that are not prescribed to you by a doctor. You are being sent back to [facility] to complete your detox and enter into inpatient rehab to help you from using again in the future. If you continue to use illicit substances you put yourself at risk of early heart disease, liver failure, and infections. Please use the support systems that [facility] will set up for you to keep clean. Follow up with your primary care doctor once you complete the inpatient program Return to the ER for chest pain, or repeat seizures. - Home Medications Comprehensive Discharge Medication List: Ambulatory Orders Albuterol Sulfate Inhaler - [Ventolin HFA Inhaler -] 2 inh PO Q4H PRN #1 inhaler 02/02/16 Budesonide/Formeterol Fumarate [SYMBICORT 160/4.5mcg -] 1 inh PO BID #1 inhaler 02/02/16 Fluticasone Propionate [Flonase Allergy Relief] 1 spray NS ASDIR 05/31/17 Omeprazole 40 mg PO DAILY 05/31/17 Quetiapine Fumarate [Seroquel -] 100 mg PO HS 05/31/17 Trazodone HCl [Desyrel -] 50 mg PO HS 05/31/17 Methadone [Dolophine -] 40 mg PO DAILY 06/01/17 This patient is new to me today: No Emergency Visit: Yes ED Registration Date: 06/01/17 Care time: The patient presented to the Emergency Department on the above date and was hospitalized for further evaluation of their emergent condition. Critical Care patient: No - Discharge Referral Referred to [facility].: No
[2017-06-02] MEDS ORDERED: METHADONE HCL 10 MG TABLET PO SCH (10:00)
[2017-06-02] MEDS ORDERED: MULTIVITAMINS THER W-MINERALS COMBO TABLET (FP) PO SCH (10:00)
[2017-06-02] MEDS ORDERED: ENOXAPARIN NA (PORCINE) 40 MG/0.4 ML DISP.SYRIN SQ SCH (10:00)
[2017-06-02] MEDS ORDERED: THIAMINE HCL 100 MG TABLET (FP) PO SCH (10:00)
[2017-06-02] MEDS ORDERED: chlordiazePOXIDE HCL 25 MG CAPSULE PO SCH (17:00)
[2017-06-03] MEDS ORDERED: chlordiazePOXIDE 5 MG CAPSULE PO SCH (17:00)
== END 2017-06-02 12:54 | disposition other institution (70) | DRG 53 ==
LOC: JER 09:15 → JERBED 14:03 → UNDOADMIN 14:10 → J4W 15:10
PROVIDERS: ADMIT Internal Medicine; ATTEND Internal Medicine
PROC: HZ2ZZZZ Detoxification Services for Substance Abuse Treatment (ICD-10-PCS; principal; 2017-06-01)
DX: G40.89 Other seizures (principal); J45.909 Unspecified asthma, uncomplicated; K29.60 Other gastritis without bleeding; R11.2 Nausea with vomiting, unspecified; F32.9 Major depressive disorder, single episode, unspecified; F19.90 Other psychoactive substance use, unspecified, uncomplicated; F10.230 Alcohol dependence with withdrawal, uncomplicated; Y90.9 Presence of alcohol in blood, level not specified; D72.828 Other elevated white blood cell count; N39.498 Other specified urinary incontinence; F11.23 Opioid dependence with withdrawal; Z91.14 Patient's other noncompliance with medication regimen
CPT/HCPCS: 36415; 71010-TC; 80048; 80053; 81003; 83690; 83735; 84703; 85025; 93005; 93010; 99285-25

== ENCOUNTER 2017-06-02 16:44 | Inpatient (IN) | payer OTHER ==
[2017-06-02 17:26] VITALS: BMI 38.0
--- NOTE | 2017-06-02 18:07 | HP ---
CIWA Score - CIWA Score Nausea/Vomitin-No Nausea/No Vomiting Muscle Tremors: 3 Anxiety: 2 Agitation: 3 Paroxysmal Sweats: 3 Orientation: 0-Oriented Tacttile Disturbances: 0-None Auditory Disturbances: 0-None Visual Disturbances: 0-None Headache: 0-None Present CIWA-Ar Total Score: 11 Admission ROS BHS - HPI Chief Complaint: Withdrawal seizure while in rehab Allergies/Adverse Reactions: Allergies Allergy/AdvReac Type Severity Reaction Status Date / Time No Known Allergies Allergy Verified 05/31/17 13:58 History of Present Illness: Pt. was admitted to rehab because it was thought that her last drink was a week prior to admission. However pt. had a seizure in rehab, then told staff a different story. Her last drink was a day prior to admission. She was sent to [facility] treated with librium taper x 24 hrs. she's back to complete detox and resume rehab. Exam Limitations: No Limitations - Ebola screening Have you traveled outside of the country in the last 21 days: No Have you had contact with anyone from an Ebola affected area: No Do you have a fever: No - Review of Systems Constitutional: Diaphoresis EENT: reports: No Symptoms Reported Respiratory: reports: No Symptoms reported Cardiac: reports: No Symptoms Reported GI: reports: No Symptoms Reported : reports: No Symptoms Reported Musculoskeletal: reports: No Symptoms Reported Integumentary: reports: Sweating Neuro: reports: Seizure (Three months ago And yesterday. was on keppra), Tremors Endocrine: reports: No Symptoms Reported Hematology: reports: No Symptoms Reported Psychiatric: reports: No Sypmtoms Reported Other Systems: Reviewed and Negative Patient History - Patient Medical History Hx Anemia: No Hx Asthma: Yes Hx Chronic Obstructive Pulmonary Disease (COPD): No Hx Cancer: No Hx Cardiac Disorders: No Hx Congestive Heart Failure: No Hx Hypertension: No Hx Hypercholesterolemia: No Hx Pacemaker: No HX Cerebrovascular Accident: No Hx Seizures: Yes (with withdrawal 06/01/17) Hx Dementia: No Hx Diabetes: No Hx Gastrointestinal Disorders: Yes (Gastritis) Hx Liver Disease: No Hx Genitourinary Disorders: No Hx Sexually Transmitted Disorders: No Hx Renal Disease (ESRD): No Hx Thyroid Disease: No Hx Human Immunodeficiency Virus (HIV): No Hx Hepatitis C: No Hx Depression: Yes Hx Suicide Attempt: No Hx Bipolar Disorder: No Hx Schizophrenia: No - Patient Surgical History Past Surgical History: No Hx Neurologic Surgery: No Hx Cataract Extraction: No Hx Cardiac Surgery: No Hx Lung Surgery: No Hx Breast Surgery: No Hx Breast Biopsy: No Hx Abdominal Surgery: No Hx Appendectomy: No Hx Cholecystectomy: No Hx Genitourinary Surgery: No Hx Section: No Hx Orthopedic Surgery: No Hx Hysterectomy: No Anesthesia Reaction: No - PPD History Results: CXR PPD to be Administered?: No - Reproductive History Patient is a Female of Child Bearing Age (11 -55 yrs old): Yes Last Menstrual Period: 05/11/17 Patient : No - Smoking Cessation Smoking history: Current every day smoker Have you smoked in the past 12 months: Yes Aproximately how many cigarettes per day: 8 Hx Chewing Tobacco Use: No Initiated information on smoking cessation: Yes 'Breaking Loose' booklet given: 06/02/17 - Substance & Tx. History Hx Alcohol Use: Yes Hx Substance Use: Yes Substance Use Type: Alcohol Hx Substance Use Treatment: Yes ([facility] detox 01/2016) - Substances Abused Alcohol Route: Oral Frequency: 3-6 times per week Amount used: Vodka 1/2 pint Age of first use: 17 Date of Last Use: 05/30/17 Family Disease History - Family Disease History Family Disease History: Heart Disease: Mother (HTN) Admission Physical Exam BHS - Vital Signs Vital Signs: Vital Signs - 24 hr 06/02/17 17:19 Temperature 97.2 F L Pulse Rate 86 Respiratory 18 Rate Blood Pressure 106/66 - Physical General Appearance: Yes: Tremorous, Irritable, Anxious HEENTM: Yes: Within Normal Limits Respiratory: Yes: Chest Non-Tender, Lungs Clear, Normal Breath Sounds Neck: Yes: Supple Breast: Yes: Breast Exam Deferred Cardiology: Yes: Regular Rhythm, Regular Rate, S1, S2 Abdominal: Yes: Normal Bowel Sounds, Non Tender, Soft Genitourinary: Yes: Within Normal Limits Back: Yes: Within Normal Limits Musculoskeletal: Yes: Within Normal Limits Extremities: Yes: Tremors Neurological: Yes: Fully Oriented, Alert Integumentary: Yes: Within Normal Limits Lymphatic: Yes: Within Normal Limits - Diagnostic (1) Alcohol dependence with uncomplicated withdrawal Current Visit: Yes Status: Chronic (2) Asthma Current Visit: Yes Status: Chronic Qualifiers: Asthma severity: mild Asthma persistence: unspecified Asthma complication type: uncomplicated Qualified Code(s): J45.909 - Unspecified asthma, uncomplicated; J45.909 - Unspecified asthma, uncomplicated; J45.909 - Unspecified asthma, uncomplicated (3) Methadone maintenance therapy patient Current Visit: Yes Status: Chronic Cleared for Admission [facility] - Detox or Rehab [facility] Level of Care: Medically Supervised Detox Regimen/Protocol: Librium [facility] Breath Alcohol Content Breath Alcohol Content: 0 Urine Pregancy Test - Result Urine Test Results: Negative- NO Line Present Urine Drug Screen - Results Drug Screen Negative: Yes Urine Drug Screen Results: OPI-Opiates, BZO-Benzodiazepines, MTD-Methadone
[2017-06-02] MEDS ORDERED: chlordiazePOXIDE HCL 25 MG CAPSULE PO ONE (18:18)
[2017-06-02] MEDS ORDERED: P-EPHED 60MG/TRIPROLIDI 2.5MG TABLET PO PRN (18:18)
[2017-06-02] MEDS ORDERED: ACETAMINOPHEN 325 MG TABLET (FP) PO PRN (18:18)
[2017-06-02] MEDS ORDERED: guaiFENesin/D-METHORPHAN HB 10 ML UNIT-DOSE CUPS PO PRN (18:18)
[2017-06-02] MEDS ORDERED: MAGNESIUM CITRATE 300 ML BOTTLE PO PRN (18:18)
[2017-06-02] MEDS ORDERED: LOPERAMIDE HCL 2 MG CAPSULE PO PRN (18:18)
[2017-06-02] MEDS ORDERED: chlordiazePOXIDE HCL 25 MG CAPSULE PO PRN (18:18)
[2017-06-02] MEDS ORDERED: NICOTINE POLACRILEX 2 MG GUM BC PRN (18:18)
[2017-06-02] MEDS ORDERED: IBUPROFEN 400 MG TABLET (FP) PO PRN (18:18)
[2017-06-02] MEDS ORDERED: MAGNESIUM HYDROX 2400MG/30ML ORAL SUSPENSION 30 ML CUP PO PRN (18:18)
[2017-06-02] MEDS ORDERED: MAG HYDROX/AL HYDROX/SIMETH 30 ML UNIT-DOSE CUP PO PRN (18:18)
[2017-06-02] MEDS ORDERED: MENTHOL/PHENOL 1 EACH UD MM PRN (18:18)
[2017-06-02] MEDS ORDERED: ALBUTEROL SO4 18 GM HFA INHALER IH PRN (18:21)
[2017-06-02] MEDS: NICOTINE 21 MG/24 HOURS TOPICAL PATCH TD SCH (19:59)
[2017-06-02 20:19] LABS: URINE APPEARANCE CLOUDY; URINE BILIRUBIN NEGATIVE (NEGATIVE); URINE BLOOD NEGATIVE (NEGATIVE); URINE COLOR YELLOW; URINE GLUCOSE (UA) NEGATIVE (NEGATIVE); URINE KETONE TRACE (NEGATIVE); URINE NITRITE NEGATIVE (NEGATIVE); URINE PROTEIN NEGATIVE (NEGATIVE); URINE UROBILINOGEN NEGATIVE mg/dL (0.2-1.0)
[2017-06-02] MEDS: BUDESONIDE/FORMETEROL FUMARATE 160/4.5 mcg INHALER IH SCH (22:03)
[2017-06-02] MEDS: THIAMINE HCL 100 MG TABLET (FP) PO SCH (22:04)
[2017-06-02] MEDS: diphenhydrAMINE HCL 50 MG CAPSULE PO PRN (22:04)
[2017-06-02] MEDS: chlordiazePOXIDE HCL 25 MG CAPSULE PO SCH (22:04)
[2017-06-02 22:10] LABS: URINE LEUK ESTERASE Negative (NEGATIVE)
[2017-06-03] MEDS: METHADONE HCL 40 MG DISPERSABLE TABLET PO SCH (05:24)
[2017-06-03] MEDS: chlordiazePOXIDE HCL 25 MG CAPSULE PO SCH ×4 (05:24→17:28)
[2017-06-03] MEDS ORDERED: METHADONE HCL 10 MG TABLET PO SCH (06:00)
[2017-06-03 10:23] LABS: MCH 28.1 pg (25.7-33.7); MCHC 32.7 g/dl (32.0-36.0); MEAN CELL VOLUME 85.7 fl (80-96); MEAN PLT VOLUME 7.2 fl (7.5-11.1); PLATELET COUNT 272 K/MM3 (134-434); RDW 14.2 % (11.6-15.6); WHITE BLOOD COUNT 9.8 K/mm3 (4.0-10.0)
[2017-06-03] MEDS: PRENATAL VITAMINS W/ FOLIC ACID TABLET (FP) PO SCH (10:23)
[2017-06-03] MEDS: BUDESONIDE/FORMETEROL FUMARATE 160/4.5 mcg INHALER IH SCH ×2 (10:24→22:10)
[2017-06-03] MEDS: NICOTINE 21 MG/24 HOURS TOPICAL PATCH TD SCH (10:28)
[2017-06-03 10:37] LABS: ALBUMIN 3.2 g/dl (3.4-5.0); ALK PHOS 68 U/L (45-117); ANION GAP 6 (8-16); BILIRUBIN,TOTAL 0.7 mg/dL (0.2-1.0); CALCIUM 8.2 mg/dL (8.5-10.1); CO2 27 mmol/L (21-32); CREATININE 0.8 mg/dL (0.55-1.02); GLUCOSE,RANDOM 89 mg/dL (74-106); SGOT/AST 13 U/L (15-37); SGPT/ALT 22 U/L (12-78); TOT PROT 6.5 g/dl (6.4-8.2)
[2017-06-03 10:59] LABS: HIV 1 & 2 AB NEGATIVE; HIV 1 AGp24 NEGATIVE
--- NOTE | 2017-06-03 11:31 | PN ---
S CIWA - CIWA Score Nausea/Vomitin Muscle Tremors: 3 Anxiety: 3 Agitation: 2 Paroxysmal Sweats: 1-Minimal Palms Moist Orientation: 0-Oriented Tacttile Disturbances: 1-Very Mild Itch/Numbness Auditory Disturbances: 1-Very Mild Visual Disturbances: 0-None Headache: 2-Mild CIWA-Ar Total Score: 16 BHS Progress Note (SOAP) Subjective: ALERT,IRRITABLE,ANXIOUS,INTERRUPTED SLEEP,PAIN IN THE BODY AND BACK Objective: 06/03/17 11:26 Vital Signs Temperature 97.6 F 06/03/17 09:53 Pulse Rate 80 06/03/17 09:53 Respiratory Rate 18 06/03/17 09:53 Blood Pressure 120/75 06/03/17 09:53 O2 Sat by Pulse Oximetry (%) EKG NSR,INVERTED T IN 3 NO CHEST PAIN,NO SOB,NO DIZZINESS Laboratory Last Values WBC 9.8 K/mm3 (4.0-10.0) 06/03/17 07:40 RBC 4.66 M/mm3 (3.60-5.2) 06/03/17 07:40 Hgb 13.1 GM/dL (10.7-15.3) 06/03/17 07:40 Hct 40.0 % (32.4-45.2) 06/03/17 07:40 MCV 85.7 fl (80-96) 06/03/17 07:40 MCH 28.1 pg (25.7-33.7) 06/03/17 07:40 MCHC 32.7 g/dl (32.0-36.0) 06/03/17 07:40 RDW 14.2 % (11.6-15.6) 06/03/17 07:40 Plt Count 272 K/MM3 (134-434) 06/03/17 07:40 MPV 7.2 fl (7.5-11.1) L 06/03/17 07:40 Sodium 138 mmol/L (136-145) 06/03/17 07:40 Potassium 3.4 mmol/L (3.5-5.1) L 06/03/17 07:40 Chloride 105 mmol/L (98-107) 06/03/17 07:40 Carbon Dioxide 27 mmol/L (21-32) 06/03/17 07:40 Anion Gap 6 (8-16) L 06/03/17 07:40 BUN 9 mg/dL (7-18) D 06/03/17 07:40 Creatinine 0.8 mg/dL (0.55-1.02) 06/03/17 07:40 Creat Clearance w eGFR > 60 (>60) 06/03/17 07:40 Random Glucose 89 mg/dL (74-106) 06/03/17 07:40 Calcium 8.2 mg/dL (8.5-10.1) L 06/03/17 07:40 Total Bilirubin 0.7 mg/dL (0.2-1.0) 06/03/17 07:40 AST 13 U/L (15-37) L D 06/03/17 07:40 ALT 22 U/L (12-78) D 06/03/17 07:40 Alkaline Phosphatase 68 U/L (45-117) 06/03/17 07:40 Total Protein 6.5 g/dl (6.4-8.2) 06/03/17 07:40 Albumin 3.2 g/dl (3.4-5.0) L 06/03/17 07:40 Urine Color Yellow 06/02/17 19:00 Urine Appearance Cloudy 06/02/17 19:00 Urine pH 5.0 (5.0-8.0) 06/02/17 19:00 Ur Specific [place] 1.020 (1.005-1.025) 06/02/17 19:00 Urine Protein Negative (NEGATIVE) 06/02/17 19:00 Urine Glucose (UA) Negative (NEGATIVE) 06/02/17 19:00 Urine Ketones Trace (NEGATIVE) H 06/02/17 19:00 Urine Blood Negative (NEGATIVE) 06/02/17 19:00 Urine Nitrite Negative (NEGATIVE) 06/02/17 19:00 Urine Bilirubin Negative (NEGATIVE) 06/02/17 19:00 Urine Urobilinogen Negative mg/dL (0.2-1.0) 06/02/17 19:00 Ur Leukocyte Esterase Negative (NEGATIVE) 06/02/17 19:00 RPR Titer Nonreactive (NONREACTIVE) 06/03/17 07:40 HIV 1&2 Antibody Screen Negative 06/03/17 07:40 HIV P24 Antigen Negative 06/03/17 07:40 06/03/17 11:29 Assessment: 06/03/17 11:29 WITHDRAWAL SYMPTOM Plan: CONTINUE DETOX,KDUR 20 MEQ PO DAILY FOR HYPOKALEMIA K IS 3.4
[2017-06-03] MEDS ORDERED: FLU VACCINE QUAD 60 MCG/0.5 ML (MDV 17-18) IM ONE (12:00)
[2017-06-03] MEDS: POTASSIUM CHLORIDE TABS 20 MEQ TABLET.ER (FP) PO SCH (12:32)
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
--- NOTE | 2017-06-03 16:31 | EKG ---
Test Reason : Blood Pressure : / mmHG Vent. Rate : 071 BPM Atrial Rate : 071 BPM P-R Int : 178 ms QRS Dur : 080 ms QT Int : 388 ms P-R-T Axes : -23 -19 002 degrees QTc Int : 421 ms NORMAL SINUS RHYTHM NONSPECIFIC T WAVE ABNORMALITY ABNORMAL ECG WHEN COMPARED WITH ECG OF 01-JUN-2017 10:07, NONSPECIFIC T WAVE ABNORMALITY NOW EVIDENT IN LATERAL LEADS Confirmed by WAN HAYNES MD ([id number]) on 06/03/2017 4:31:07 PM Referred By: Confirmed By:WAN HAYNES MD
[2017-06-03] MEDS: chlordiazePOXIDE 5 MG CAPSULE PO SCH (22:10)
[2017-06-03] MEDS: THIAMINE HCL 100 MG TABLET (FP) PO SCH (22:10)
[2017-06-03] MEDS: traZODone HCL 100 MG TABLET (FP) PO SCH (22:10)
[2017-06-03] MEDS: diphenhydrAMINE HCL 50 MG CAPSULE PO PRN (22:10)
[2017-06-04] MEDS: chlordiazePOXIDE 5 MG CAPSULE PO SCH ×3 (05:40→18:34)
[2017-06-04] MEDS ORDERED: TRIMETHOBENZAMIDE HCL 200MG/2ML INJ IM PRN (06:35)
[2017-06-04] MEDS: METHADONE HCL 40 MG DISPERSABLE TABLET PO SCH (08:00)
[2017-06-04] MEDS ORDERED: METHADONE HCL 10 MG TABLET PO SCH (09:30)
[2017-06-04] MEDS ORDERED: METHADONE HCL 40 MG DISPERSABLE TABLET ONE (09:54)
[2017-06-04] MEDS ORDERED: METHADONE HCL 10 MG TABLET ONE (09:55)
[2017-06-04] MEDS: PRENATAL VITAMINS W/ FOLIC ACID TABLET (FP) PO SCH (10:07)
[2017-06-04] MEDS: POTASSIUM CHLORIDE TABS 20 MEQ TABLET.ER (FP) PO SCH (10:07)
[2017-06-04] MEDS: METHADONE 40 MG, METHADONE 10 MG PO SCH (10:08)
[2017-06-04] MEDS: BUDESONIDE/FORMETEROL FUMARATE 160/4.5 mcg INHALER IH SCH ×2 (10:09→22:45)
[2017-06-04] MEDS: NICOTINE 21 MG/24 HOURS TOPICAL PATCH TD SCH (10:09)
[2017-06-04] MEDS ORDERED: ONDANSETRON *ODT* 4 MG TABLET SL PRN (10:21)
--- NOTE | 2017-06-04 10:53 | PN ---
S CIWA - CIWA Score Nausea/Vomitin Muscle Tremors: 3 Anxiety: 3 Agitation: 2 Paroxysmal Sweats: 1-Minimal Palms Moist Orientation: 0-Oriented Tacttile Disturbances: 1-Very Mild Itch/Numbness Auditory Disturbances: 1-Very Mild Visual Disturbances: 0-None Headache: 2-Mild CIWA-Ar Total Score: 16 BHS Progress Note (SOAP) Subjective: ALERT,IRRITABLE,ANXIOUS,INTERRUPTED SLEEP,TREMOR,NAUSEA,VOMITING,PAIN IN THE BODY Objective: 06/04/17 10:52 Vital Signs Temperature 98.1 F 06/04/17 09:41 Pulse Rate 84 06/04/17 09:41 Respiratory Rate 18 06/04/17 09:41 Blood Pressure 140/87 06/04/17 09:41 O2 Sat by Pulse Oximetry (%) Laboratory Last Values WBC 9.8 K/mm3 (4.0-10.0) 06/03/17 07:40 RBC 4.66 M/mm3 (3.60-5.2) 06/03/17 07:40 Hgb 13.1 GM/dL (10.7-15.3) 06/03/17 07:40 Hct 40.0 % (32.4-45.2) 06/03/17 07:40 MCV 85.7 fl (80-96) 06/03/17 07:40 MCH 28.1 pg (25.7-33.7) 06/03/17 07:40 MCHC 32.7 g/dl (32.0-36.0) 06/03/17 07:40 RDW 14.2 % (11.6-15.6) 06/03/17 07:40 Plt Count 272 K/MM3 (134-434) 06/03/17 07:40 MPV 7.2 fl (7.5-11.1) L 06/03/17 07:40 Sodium 138 mmol/L (136-145) 06/03/17 07:40 Potassium 3.4 mmol/L (3.5-5.1) L 06/03/17 07:40 Chloride 105 mmol/L (98-107) 06/03/17 07:40 Carbon Dioxide 27 mmol/L (21-32) 06/03/17 07:40 Anion Gap 6 (8-16) L 06/03/17 07:40 BUN 9 mg/dL (7-18) D 06/03/17 07:40 Creatinine 0.8 mg/dL (0.55-1.02) 06/03/17 07:40 Creat Clearance w eGFR > 60 (>60) 06/03/17 07:40 Random Glucose 89 mg/dL (74-106) 06/03/17 07:40 Calcium 8.2 mg/dL (8.5-10.1) L 06/03/17 07:40 Total Bilirubin 0.7 mg/dL (0.2-1.0) 06/03/17 07:40 AST 13 U/L (15-37) L D 06/03/17 07:40 ALT 22 U/L (12-78) D 06/03/17 07:40 Alkaline Phosphatase 68 U/L (45-117) 06/03/17 07:40 Total Protein 6.5 g/dl (6.4-8.2) 06/03/17 07:40 Albumin 3.2 g/dl (3.4-5.0) L 06/03/17 07:40 Urine Color Yellow 06/02/17 19:00 Urine Appearance Cloudy 06/02/17 19:00 Urine pH 5.0 (5.0-8.0) 06/02/17 19:00 Ur Specific [place] 1.020 (1.005-1.025) 06/02/17 19:00 Urine Protein Negative (NEGATIVE) 06/02/17 19:00 Urine Glucose (UA) Negative (NEGATIVE) 06/02/17 19:00 Urine Ketones Trace (NEGATIVE) H 06/02/17 19:00 Urine Blood Negative (NEGATIVE) 06/02/17 19:00 Urine Nitrite Negative (NEGATIVE) 06/02/17 19:00 Urine Bilirubin Negative (NEGATIVE) 06/02/17 19:00 Urine Urobilinogen Negative mg/dL (0.2-1.0) 06/02/17 19:00 Ur Leukocyte Esterase Negative (NEGATIVE) 06/02/17 19:00 RPR Titer Nonreactive (NONREACTIVE) 06/03/17 07:40 HIV 1&2 Antibody Screen Negative 06/03/17 07:40 HIV P24 Antigen Negative 06/03/17 07:40 Assessment: 06/04/17 10:53 WITHDRAWAL SYMPTOM Plan: CONTINUE DETOX,CONTINUE K DUR FOR HYPOKALEMIA K IS 3.4
--- NOTE | 2017-06-04 10:58 | PN ---
BHS Progress Note Note: METHADONE MAINTENANCE DOSE TO INCREASE TO 50 MGS/DAY FROM TODAY BY PATIENT'S PROGRAM CONFORMED BY NURSE
[2017-06-04] MEDS: traZODone HCL 100 MG TABLET (FP) PO SCH (22:12)
[2017-06-04] MEDS: THIAMINE HCL 100 MG TABLET (FP) PO SCH (22:12)
[2017-06-04] MEDS: chlordiazePOXIDE HCL 10 MG CAPSULE PO SCH (22:12)
[2017-06-05] MEDS ORDERED: METHADONE HCL 40 MG DISPERSABLE TABLET ONE (04:44)
[2017-06-05] MEDS ORDERED: METHADONE HCL 10 MG TABLET ONE (04:45)
[2017-06-05] MEDS: METHADONE 40 MG, METHADONE 10 MG PO SCH (05:09)
[2017-06-05] MEDS: chlordiazePOXIDE HCL 10 MG CAPSULE PO SCH ×2 (05:11→10:06)
--- NOTE | 2017-06-05 09:25 | PN ---
S Progress Note (SOAP) Subjective: ALERT,NO COMPLAINT Objective: 06/05/17 09:23 ALERT,NO COMPLAINT 06/05/17 09:24 06/05/17 09:24 Vital Signs Temperature 98.1 F 06/05/17 06:08 Pulse Rate 74 06/05/17 06:08 Respiratory Rate 18 06/05/17 06:08 Blood Pressure 121/66 06/05/17 06:08 O2 Sat by Pulse Oximetry (%) Assessment: 06/05/17 09:24 PATIENT IS STABLE FOR DISCHARGE Plan: DISCHARGE TODAY,FOLLOW UP WITH AFTER CARE PROGRAM ARRANGEMENT
--- NOTE | 2017-06-05 09:32 | DS ---
[facility] Detox Discharge Summary Admission Date: 06/02/17 Discharge Date: 06/05/17 - History Present History: Alcohol Dependence, MMTP Additional Comments: FOLLOW UP WITH AFTER [facility] PROGRAM ARRANGEMENT Pertinent Past History: ASTHMA NICOTINE DEPENDENCE METHADONE MAINTENANCE - Physical Exam Results Vital Signs: Vital Signs Temperature 98.1 F 06/05/17 06:08 Pulse Rate 74 06/05/17 06:08 Respiratory Rate 18 06/05/17 06:08 Blood Pressure 121/66 06/05/17 06:08 O2 Sat by Pulse Oximetry (%) Pertinent Admission Physical Exam Findings: WITHDRAWAL SYMPTOM - Treatment Hospital Course: Detox Protocol Followed, Detoxed Safely, Responded well, Discharged Condition Good Patient has Accepted a Rehab Referral to: DECLINED - Medication Discharge Medications: Ambulatory Orders Albuterol Sulfate Inhaler - [Ventolin HFA Inhaler -] 2 inh PO Q4H PRN #1 inhaler 02/02/16 Budesonide/Formeterol Fumarate [SYMBICORT 160/4.5mcg -] 1 inh PO BID #1 inhaler 02/02/16 Fluticasone Propionate [Flonase Allergy Relief] 1 spray NS ASDIR 05/31/17 Omeprazole 40 mg PO DAILY 05/31/17 Quetiapine Fumarate [Seroquel -] 100 mg PO HS 05/31/17 Trazodone HCl [Desyrel -] 50 mg PO HS 05/31/17 Methadone [Dolophine -] 40 mg PO DAILY 06/01/17 Levetiracetam [Keppra -] 500 mg PO BID 06/02/17 Trazodone HCl 100 mg PO HS #30 tablet 06/03/17 - Diagnosis (1) Alcohol dependence with uncomplicated withdrawal Current Visit: Yes Status: Chronic (2) Nicotine dependence Current Visit: No Status: Acute Qualifiers: Nicotine product type: cigarettes Substance use status: in withdrawal Qualified Code(s): F17.213 - Nicotine dependence, cigarettes, with withdrawal; F17.213 - Nicotine dependence, cigarettes, with withdrawal (3) Asthma Current Visit: Yes Status: Chronic Qualifiers: Asthma severity: mild Asthma persistence: unspecified Asthma complication type: uncomplicated Qualified Code(s): J45.909 - Unspecified asthma, uncomplicated; J45.909 - Unspecified asthma, uncomplicated; J45.909 - Unspecified asthma, uncomplicated (4) Methadone maintenance therapy patient Current Visit: Yes Status: Chronic (5) Hypokalemia Current Visit: Yes Status: Acute (6) Alcohol related seizure Current Visit: Yes Status: Acute (7) Alcohol-induced sleep disorder Current Visit: Yes Status: Acute - AMA Did Patient Leave Against Medical Advice: No
[2017-06-05] MEDS: POTASSIUM CHLORIDE TABS 20 MEQ TABLET.ER (FP) PO SCH (10:05)
[2017-06-05] MEDS: PRENATAL VITAMINS W/ FOLIC ACID TABLET (FP) PO SCH (10:05)
[2017-06-05] MEDS: BUDESONIDE/FORMETEROL FUMARATE 160/4.5 mcg INHALER IH SCH (10:06)
[2017-06-05] MEDS: NICOTINE 21 MG/24 HOURS TOPICAL PATCH TD SCH (10:06)
[2017-06-05 10:12] VITALS: BP 101/61; PULSE 90; TEMP 97.5
== END 2017-06-05 12:27 | disposition home or self-care (01) | DRG 773 ==
LOC: YASAS 16:44 → Y6N 17:01
PROVIDERS: ADMIT Internal Medicine; ATTEND Internal Medicine
PROC: HZ2ZZZZ Detoxification Services for Substance Abuse Treatment (ICD-10-PCS; principal; 2017-06-02)
DX: F10.230 Alcohol dependence with withdrawal, uncomplicated (principal); F10.280 Alcohol dependence with alcohol-induced anxiety disorder; F10.282 Alcohol dependence with alcohol-induced sleep disorder; F11.20 Opioid dependence, uncomplicated; F17.213 Nicotine dependence, cigarettes, with withdrawal; J45.909 Unspecified asthma, uncomplicated; E87.6 Hypokalemia; Z86.69 Personal history of other diseases of the nervous system and sense organs
CPT/HCPCS: 36415; 80053; 81003; 85027; 86593; 87389; 90688; 93005; 93010; G0008

== ENCOUNTER 2017-06-07 14:32 | Inpatient (IN) | payer OTHER ==
[2017-06-07 17:12] VITALS: BMI 37.8
--- NOTE | 2017-06-07 22:06 | HP ---
[facility] Re[facility] Assess/Revision - Admission History Date of Admission to Rehab: 06/07/2017 - Vital signs Vital Signs: Vital Signs Period Temp Pulse Resp BP Sys/Waller Pulse Ox Last 24 Hr 98.1 F 120 18 124/74 - Findings Detox History & Physical reviewed: Yes Concur with findings: Yes Comments/Additional Findings: DC FROM 6N ON 06/05/2017
[2017-06-07] MEDS ORDERED: MAGNESIUM CITRATE 300 ML BOTTLE PO PRN (22:08)
[2017-06-07] MEDS ORDERED: IBUPROFEN 400 MG TABLET (FP) PO PRN (22:08)
[2017-06-07] MEDS ORDERED: ALBUTEROL SO4 18 GM HFA INHALER IH PRN (22:08)
[2017-06-07] MEDS ORDERED: LOPERAMIDE HCL 2 MG CAPSULE PO PRN (22:08)
[2017-06-07] MEDS ORDERED: MAG HYDROX/AL HYDROX/SIMETH 30 ML UNIT-DOSE CUP PO PRN (22:08)
[2017-06-07] MEDS ORDERED: hydrOXYzine PAMOATE 50 MG CAPSULE (FP) PO PRN (22:08)
[2017-06-07] MEDS ORDERED: P-EPHED 60MG/TRIPROLIDI 2.5MG TABLET PO PRN (22:08)
[2017-06-07] MEDS ORDERED: guaiFENesin/D-METHORPHAN HB 10 ML UNIT-DOSE CUPS PO PRN (22:08)
[2017-06-07] MEDS ORDERED: ACETAMINOPHEN 325 MG TABLET (FP) PO PRN (22:08)
[2017-06-07] MEDS ORDERED: MENTHOL/PHENOL 1 EACH UD MM PRN (22:08)
[2017-06-08 01:54] LABS: URINE APPEARANCE CLOUDY; URINE BILIRUBIN NEGATIVE (NEGATIVE); URINE BLOOD 3+ (NEGATIVE); URINE COLOR YELLOW; URINE GLUCOSE (UA) NEGATIVE (NEGATIVE); URINE KETONE NEGATIVE (NEGATIVE); URINE NITRITE NEGATIVE (NEGATIVE); URINE PROTEIN NEGATIVE (NEGATIVE); URINE UROBILINOGEN NEGATIVE mg/dL (0.2-1.0)
[2017-06-08 02:21] LABS: URINE MUCUS RARE
[2017-06-08 02:43] LABS: URINE RBC 5 /hpf (0-3)
[2017-06-08 02:44] LABS: URINE BACTERIA MANY /hpf (NONE SEEN)
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
[2017-06-08] MEDS ORDERED: METHADONE HCL 10 MG TABLET ONE (07:44)
[2017-06-08] MEDS ORDERED: METHADONE HCL 40 MG DISPERSABLE TABLET ONE (07:45)
[2017-06-08] MEDS ORDERED: METHADONE HCL 10 MG TABLET PO SCH (07:45)
[2017-06-08] MEDS: METHADONE 40 MG, METHADONE 10 MG PO SCH (07:48)
--- NOTE | 2017-06-08 09:23 | EKG ---
Test Reason : Blood Pressure : / mmHG Vent. Rate : 067 BPM Atrial Rate : 067 BPM P-R Int : 214 ms QRS Dur : 082 ms QT Int : 396 ms P-R-T Axes : 028 -28 006 degrees QTc Int : 418 ms SINUS RHYTHM WITH 1ST DEGREE A-V BLOCK WHEN COMPARED WITH ECG OF 02-JUN-2017 19:13, [place] INTERVAL HAS INCREASED NONSPECIFIC T WAVE ABNORMALITY NO LONGER EVIDENT IN ANTEROLATERAL LEADS Confirmed by JUAN JOSÉ HNEDERSON MD ([id number]) on 06/08/2017 9:23:30 AM Referred By: Confirmed By:JUAN JOSÉ HENDERSON MD
[2017-06-08] MEDS: PRENATAL VITAMINS W/ FOLIC ACID TABLET (FP) PO SCH (09:54)
[2017-06-08] MEDS: NICOTINE 14 MG/24 HOURS TOPICAL PATCH TD SCH (09:55)
[2017-06-08] MEDS: PANTOPRAZOLE 20 MG TABLET (FP) PO SCH (09:55)
[2017-06-08] MEDS: levETIRAcetam 500 MG TABLET (FP) PO SCH ×2 (09:55→21:12)
[2017-06-08 10:14] LABS: URINE LEUK ESTERASE 1+ (NEGATIVE)
[2017-06-08] MEDS: BUDESONIDE/FORMETEROL FUMARATE 160/4.5 mcg INHALER IH SCH ×2 (10:20→21:13)
[2017-06-08 15:21] LABS: ALBUMIN 3.4 g/dl (3.4-5.0); ALK PHOS 78 U/L (45-117); ANION GAP 7 (8-16); BILIRUBIN,TOTAL 0.5 mg/dL (0.2-1.0); CALCIUM 8.5 mg/dL (8.5-10.1); CO2 29 mmol/L (21-32); CREATININE 0.8 mg/dL (0.55-1.02); GLUCOSE,RANDOM 107 mg/dL (74-106); SGOT/AST 18 U/L (15-37); SGPT/ALT 25 U/L (12-78); TOT PROT 6.8 g/dl (6.4-8.2)
[2017-06-08] MEDS: THIAMINE HCL 100 MG TABLET (FP) PO SCH (21:12)
[2017-06-08] MEDS: traZODone HCL 100 MG TABLET (FP) PO SCH (21:12)
[2017-06-09] MEDS ORDERED: METHADONE HCL 40 MG DISPERSABLE TABLET ONE (05:13)
[2017-06-09] MEDS ORDERED: METHADONE HCL 10 MG TABLET ONE (05:13)
[2017-06-09] MEDS: METHADONE 40 MG, METHADONE 10 MG PO SCH (07:00)
[2017-06-09] MEDS: BUDESONIDE/FORMETEROL FUMARATE 160/4.5 mcg INHALER IH SCH ×2 (09:50→21:34)
[2017-06-09] MEDS: PRENATAL VITAMINS W/ FOLIC ACID TABLET (FP) PO SCH (09:50)
[2017-06-09] MEDS: levETIRAcetam 500 MG TABLET (FP) PO SCH ×2 (09:50→21:35)
[2017-06-09] MEDS: PANTOPRAZOLE 20 MG TABLET (FP) PO SCH (09:50)
[2017-06-09] MEDS: NICOTINE 14 MG/24 HOURS TOPICAL PATCH TD SCH (09:51)
[2017-06-09] MEDS: NICOTINE POLACRILEX 2 MG GUM BUC PRN (09:52)
--- NOTE | 2017-06-09 12:55 | EKG ---
Test Reason : Blood Pressure : / mmHG Vent. Rate : 065 BPM Atrial Rate : 065 BPM P-R Int : 176 ms QRS Dur : 076 ms QT Int : 382 ms P-R-T Axes : 032 -22 010 degrees QTc Int : 397 ms NORMAL SINUS RHYTHM LEFT AXIS DEVIATION POOR R WAVE PROGRESSION WHEN COMPARED WITH ECG OF 08-JUN-2017 05:49, [place] INTERVAL HAS DECREASED Confirmed by JUAN JOSÉ HENDRESON MD ([id number]) on 06/09/2017 12:54:52 PM Referred By: Confirmed By:JUAN JOSÉ HENDERSON MD
[2017-06-09] MEDS: traZODone HCL 100 MG TABLET (FP) PO SCH (21:35)
[2017-06-09] MEDS: THIAMINE HCL 100 MG TABLET (FP) PO SCH (21:35)
[2017-06-10] MEDS ORDERED: METHADONE HCL 10 MG TABLET ONE (05:55)
[2017-06-10] MEDS ORDERED: METHADONE HCL 40 MG DISPERSABLE TABLET ONE (05:55)
[2017-06-10] MEDS: METHADONE 40 MG, METHADONE 10 MG PO SCH (06:33)
[2017-06-10] MEDS: NICOTINE POLACRILEX 2 MG GUM BUC PRN (09:12)
[2017-06-10] MEDS: levETIRAcetam 500 MG TABLET (FP) PO SCH ×2 (09:58→21:58)
[2017-06-10] MEDS: PANTOPRAZOLE 20 MG TABLET (FP) PO SCH (09:58)
[2017-06-10] MEDS: PRENATAL VITAMINS W/ FOLIC ACID TABLET (FP) PO SCH (09:58)
[2017-06-10] MEDS: BUDESONIDE/FORMETEROL FUMARATE 160/4.5 mcg INHALER IH SCH ×2 (09:58→21:57)
[2017-06-10] MEDS: MAGNESIUM HYDROX 2400MG/30ML ORAL SUSPENSION 30 ML CUP PO PRN (09:59)
[2017-06-10] MEDS: NICOTINE 14 MG/24 HOURS TOPICAL PATCH TD SCH (10:00)
[2017-06-10] MEDS: traZODone HCL 100 MG TABLET (FP) PO SCH (21:58)
[2017-06-10] MEDS: THIAMINE HCL 100 MG TABLET (FP) PO SCH (21:59)
[2017-06-11] MEDS ORDERED: METHADONE HCL 40 MG DISPERSABLE TABLET ONE (03:07)
[2017-06-11] MEDS ORDERED: METHADONE HCL 10 MG TABLET ONE (03:07)
[2017-06-11] MEDS: METHADONE 40 MG, METHADONE 10 MG PO SCH (06:27)
[2017-06-11] MEDS: PANTOPRAZOLE 20 MG TABLET (FP) PO SCH (09:53)
[2017-06-11] MEDS: BUDESONIDE/FORMETEROL FUMARATE 160/4.5 mcg INHALER IH SCH ×2 (09:53→21:32)
[2017-06-11] MEDS: NICOTINE 14 MG/24 HOURS TOPICAL PATCH TD SCH (09:53)
[2017-06-11] MEDS: PRENATAL VITAMINS W/ FOLIC ACID TABLET (FP) PO SCH (09:53)
[2017-06-11] MEDS: levETIRAcetam 500 MG TABLET (FP) PO SCH ×2 (09:53→21:33)
[2017-06-11] MEDS: NICOTINE POLACRILEX 2 MG GUM BUC PRN (09:54)
[2017-06-11] MEDS: THIAMINE HCL 100 MG TABLET (FP) PO SCH (21:32)
[2017-06-11] MEDS: traZODone HCL 100 MG TABLET (FP) PO SCH (21:33)
[2017-06-12] MEDS ORDERED: METHADONE HCL 10 MG TABLET ONE (04:19)
[2017-06-12] MEDS ORDERED: METHADONE HCL 40 MG DISPERSABLE TABLET ONE (04:19)
[2017-06-12] MEDS: METHADONE 40 MG, METHADONE 10 MG PO SCH (06:23)
[2017-06-12] MEDS: NICOTINE 14 MG/24 HOURS TOPICAL PATCH TD SCH (10:07)
[2017-06-12] MEDS: levETIRAcetam 500 MG TABLET (FP) PO SCH ×2 (10:07→21:44)
[2017-06-12] MEDS: PANTOPRAZOLE 20 MG TABLET (FP) PO SCH (10:07)
[2017-06-12] MEDS: PRENATAL VITAMINS W/ FOLIC ACID TABLET (FP) PO SCH (10:07)
[2017-06-12] MEDS: MAGNESIUM HYDROX 2400MG/30ML ORAL SUSPENSION 30 ML CUP PO PRN (10:09)
[2017-06-12] MEDS: NICOTINE POLACRILEX 2 MG GUM BUC PRN (10:09)
[2017-06-12] MEDS: BUDESONIDE/FORMETEROL FUMARATE 160/4.5 mcg INHALER IH SCH ×2 (10:10→21:45)
[2017-06-12 10:58] LABS: URINE WBC 65 /hpf (3-5)
[2017-06-12] MEDS: traZODone HCL 100 MG TABLET (FP) PO SCH (21:44)
[2017-06-12] MEDS: THIAMINE HCL 100 MG TABLET (FP) PO SCH (21:44)
[2017-06-13] MEDS ORDERED: METHADONE HCL 10 MG TABLET ONE (05:32)
[2017-06-13] MEDS ORDERED: METHADONE HCL 40 MG DISPERSABLE TABLET ONE (05:32)
[2017-06-13] MEDS: METHADONE 40 MG, METHADONE 10 MG PO SCH (06:23)
[2017-06-13] MEDS: levETIRAcetam 500 MG TABLET (FP) PO SCH ×2 (09:56→21:21)
[2017-06-13] MEDS: PANTOPRAZOLE 20 MG TABLET (FP) PO SCH (09:57)
[2017-06-13] MEDS: PRENATAL VITAMINS W/ FOLIC ACID TABLET (FP) PO SCH (09:57)
[2017-06-13] MEDS: NICOTINE POLACRILEX 2 MG GUM BUC PRN (09:58)
[2017-06-13] MEDS: NICOTINE 14 MG/24 HOURS TOPICAL PATCH TD SCH (09:58)
[2017-06-13] MEDS: BUDESONIDE/FORMETEROL FUMARATE 160/4.5 mcg INHALER IH SCH ×2 (10:29→21:21)
[2017-06-13] MEDS ORDERED: MAGNESIUM CITRATE 300 ML BOTTLE PO PRN (12:58)
[2017-06-13] MEDS: traZODone HCL 100 MG TABLET (FP) PO SCH (21:20)
[2017-06-13] MEDS: THIAMINE HCL 100 MG TABLET (FP) PO SCH (21:20)
[2017-06-14] MEDS ORDERED: METHADONE HCL 10 MG TABLET ONE (05:41)
[2017-06-14] MEDS ORDERED: METHADONE HCL 40 MG DISPERSABLE TABLET ONE (05:42)
[2017-06-14] MEDS: METHADONE 40 MG, METHADONE 10 MG PO SCH (06:18)
[2017-06-14] MEDS: PRENATAL VITAMINS W/ FOLIC ACID TABLET (FP) PO SCH (10:07)
[2017-06-14] MEDS: NICOTINE 14 MG/24 HOURS TOPICAL PATCH TD SCH (10:07)
[2017-06-14] MEDS: levETIRAcetam 500 MG TABLET (FP) PO SCH ×2 (10:07→21:44)
[2017-06-14] MEDS: PANTOPRAZOLE 20 MG TABLET (FP) PO SCH (10:07)
[2017-06-14] MEDS: BUDESONIDE/FORMETEROL FUMARATE 160/4.5 mcg INHALER IH SCH ×2 (10:09→21:43)
[2017-06-14] MEDS: traZODone HCL 100 MG TABLET (FP) PO SCH (21:43)
[2017-06-14] MEDS: THIAMINE HCL 100 MG TABLET (FP) PO SCH (21:43)
[2017-06-15] MEDS ORDERED: METHADONE HCL 10 MG TABLET ONE (05:02)
[2017-06-15] MEDS ORDERED: METHADONE HCL 40 MG DISPERSABLE TABLET ONE (05:02)
[2017-06-15] MEDS: METHADONE 40 MG, METHADONE 10 MG PO SCH (05:56)
[2017-06-15] MEDS: PRENATAL VITAMINS W/ FOLIC ACID TABLET (FP) PO SCH (10:29)
[2017-06-15] MEDS: levETIRAcetam 500 MG TABLET (FP) PO SCH ×2 (10:29→21:19)
[2017-06-15] MEDS: PANTOPRAZOLE 20 MG TABLET (FP) PO SCH (10:29)
[2017-06-15] MEDS: BUDESONIDE/FORMETEROL FUMARATE 160/4.5 mcg INHALER IH SCH ×2 (10:30→21:19)
[2017-06-15] MEDS: NICOTINE 14 MG/24 HOURS TOPICAL PATCH TD SCH (10:30)
[2017-06-15] MEDS: THIAMINE HCL 100 MG TABLET (FP) PO SCH (21:18)
[2017-06-15] MEDS: traZODone HCL 100 MG TABLET (FP) PO SCH (21:18)
[2017-06-16] MEDS ORDERED: METHADONE HCL 10 MG TABLET ONE (04:14)
[2017-06-16] MEDS ORDERED: METHADONE HCL 40 MG DISPERSABLE TABLET ONE (04:14)
[2017-06-16] MEDS: METHADONE 40 MG, METHADONE 10 MG PO SCH (06:19)
[2017-06-16] MEDS: NICOTINE 14 MG/24 HOURS TOPICAL PATCH TD SCH (09:58)
[2017-06-16] MEDS: levETIRAcetam 500 MG TABLET (FP) PO SCH ×2 (09:58→22:11)
[2017-06-16] MEDS: PRENATAL VITAMINS W/ FOLIC ACID TABLET (FP) PO SCH (09:58)
[2017-06-16] MEDS: PANTOPRAZOLE 20 MG TABLET (FP) PO SCH (09:58)
[2017-06-16] MEDS: NICOTINE POLACRILEX 2 MG GUM BUC PRN (09:59)
[2017-06-16] MEDS ORDERED: METHADONE HCL 10 MG TABLET PO SCH (10:30)
[2017-06-16] MEDS: BUDESONIDE/FORMETEROL FUMARATE 160/4.5 mcg INHALER IH SCH ×2 (11:01→22:12)
[2017-06-16] MEDS: diphenhydrAMINE HCL 50 MG CAPSULE PO PRN (22:11)
[2017-06-16] MEDS: THIAMINE HCL 100 MG TABLET (FP) PO SCH (22:11)
[2017-06-16] MEDS: traZODone HCL 100 MG TABLET (FP) PO SCH (22:11)
[2017-06-17] MEDS ORDERED: METHADONE HCL 10 MG TABLET ONE (03:55)
[2017-06-17] MEDS ORDERED: METHADONE HCL 40 MG DISPERSABLE TABLET ONE (03:55)
[2017-06-17] MEDS: METHADONE 40 MG, METHADONE 10 MG PO SCH (06:26)
[2017-06-17] MEDS: PANTOPRAZOLE 20 MG TABLET (FP) PO SCH (09:57)
[2017-06-17] MEDS: NICOTINE 14 MG/24 HOURS TOPICAL PATCH TD SCH (09:57)
[2017-06-17] MEDS: PRENATAL VITAMINS W/ FOLIC ACID TABLET (FP) PO SCH (09:57)
[2017-06-17] MEDS: levETIRAcetam 500 MG TABLET (FP) PO SCH ×2 (09:57→21:32)
[2017-06-17] MEDS: BUDESONIDE/FORMETEROL FUMARATE 160/4.5 mcg INHALER IH SCH ×2 (09:57→21:32)
[2017-06-17] MEDS: traZODone HCL 100 MG TABLET (FP) PO SCH (21:32)
[2017-06-17] MEDS: diphenhydrAMINE HCL 50 MG CAPSULE PO PRN (21:33)
[2017-06-17] MEDS: THIAMINE HCL 100 MG TABLET (FP) PO SCH (21:33)
[2017-06-18] MEDS ORDERED: METHADONE HCL 10 MG TABLET ONE (04:00)
[2017-06-18] MEDS ORDERED: METHADONE HCL 40 MG DISPERSABLE TABLET ONE (04:01)
[2017-06-18] MEDS: METHADONE 40 MG, METHADONE 10 MG PO SCH (06:34)
[2017-06-18] MEDS: PANTOPRAZOLE 20 MG TABLET (FP) PO SCH (10:23)
[2017-06-18] MEDS: PRENATAL VITAMINS W/ FOLIC ACID TABLET (FP) PO SCH (10:23)
[2017-06-18] MEDS: levETIRAcetam 500 MG TABLET (FP) PO SCH ×2 (10:23→21:41)
[2017-06-18] MEDS: NICOTINE 14 MG/24 HOURS TOPICAL PATCH TD SCH (10:23)
[2017-06-18] MEDS: BUDESONIDE/FORMETEROL FUMARATE 160/4.5 mcg INHALER IH SCH ×2 (10:24→21:40)
[2017-06-18] MEDS: traZODone HCL 100 MG TABLET (FP) PO SCH (21:41)
[2017-06-18] MEDS: diphenhydrAMINE HCL 50 MG CAPSULE PO PRN (21:41)
[2017-06-18] MEDS: THIAMINE HCL 100 MG TABLET (FP) PO SCH (21:41)
[2017-06-19] MEDS ORDERED: METHADONE HCL 10 MG TABLET ONE (03:51)
[2017-06-19] MEDS ORDERED: METHADONE HCL 40 MG DISPERSABLE TABLET ONE (03:51)
[2017-06-19] MEDS: METHADONE 40 MG, METHADONE 10 MG PO SCH (06:08)
[2017-06-19] MEDS: PANTOPRAZOLE 20 MG TABLET (FP) PO SCH (10:13)
[2017-06-19] MEDS: PRENATAL VITAMINS W/ FOLIC ACID TABLET (FP) PO SCH (10:13)
[2017-06-19] MEDS: levETIRAcetam 500 MG TABLET (FP) PO SCH ×2 (10:13→21:28)
[2017-06-19] MEDS: NICOTINE POLACRILEX 2 MG GUM BUC PRN (10:14)
[2017-06-19] MEDS: NICOTINE 14 MG/24 HOURS TOPICAL PATCH TD SCH (10:14)
[2017-06-19] MEDS: BUDESONIDE/FORMETEROL FUMARATE 160/4.5 mcg INHALER IH SCH ×2 (10:15→21:28)
[2017-06-19] MEDS ORDERED: METHADONE HCL 40 MG DISPERSABLE TABLET PO SCH (12:45)
--- NOTE | 2017-06-19 12:46 | PN ---
S Progress Note Note: patient requesting dose decrease, dose lowered to 45mg from 50mg daily effective tomorrow.
[2017-06-19] MEDS: traZODone HCL 100 MG TABLET (FP) PO SCH (21:28)
[2017-06-19] MEDS: THIAMINE HCL 100 MG TABLET (FP) PO SCH (21:28)
[2017-06-19] MEDS: diphenhydrAMINE HCL 50 MG CAPSULE PO PRN (21:29)
[2017-06-20] MEDS ORDERED: METHADONE HCL 40 MG DISPERSABLE TABLET ONE (04:00)
[2017-06-20] MEDS ORDERED: METHADONE HCL 5 MG TABLET ONE (04:01)
[2017-06-20] MEDS: METHADONE 40 MG, METHADONE 5 MG PO SCH (05:52)
[2017-06-20] MEDS: PANTOPRAZOLE 20 MG TABLET (FP) PO SCH (10:16)
[2017-06-20] MEDS: PRENATAL VITAMINS W/ FOLIC ACID TABLET (FP) PO SCH (10:16)
[2017-06-20] MEDS: levETIRAcetam 500 MG TABLET (FP) PO SCH ×2 (10:16→21:49)
[2017-06-20] MEDS: NICOTINE 14 MG/24 HOURS TOPICAL PATCH TD SCH (10:17)
[2017-06-20] MEDS: BUDESONIDE/FORMETEROL FUMARATE 160/4.5 mcg INHALER IH SCH ×2 (10:18→21:50)
[2017-06-20] MEDS: THIAMINE HCL 100 MG TABLET (FP) PO SCH (21:49)
[2017-06-20] MEDS: traZODone HCL 100 MG TABLET (FP) PO SCH (21:49)
[2017-06-20] MEDS: diphenhydrAMINE HCL 50 MG CAPSULE PO PRN (21:49)
[2017-06-21] MEDS ORDERED: TRIMETHOBENZAMIDE HCL 200MG/2ML INJ IM PRN (03:27)
[2017-06-21] MEDS ORDERED: METHADONE HCL 40 MG DISPERSABLE TABLET ONE (03:46)
[2017-06-21] MEDS ORDERED: METHADONE HCL 5 MG TABLET ONE (03:46)
[2017-06-21] MEDS ORDERED: ONDANSETRON *ODT* 4 MG TABLET SL ONE (09:50)
--- NOTE | 2017-06-21 09:50 | PN ---
BHS Progress Note Note: Pt co ongoing vomiting Vital Signs - 24 hr 06/21/17 06/21/17 00:30 07:16 Temperature 97.4 F L Pulse Rate 81 Respiratory 20 18 Rate Blood Pressure 108/81 vss tolerating fluids advised no further decrease in methadone zofran x 1 re eval
[2017-06-21] MEDS: BUDESONIDE/FORMETEROL FUMARATE 160/4.5 mcg INHALER IH SCH ×2 (10:34→21:40)
--- NOTE | 2017-06-21 10:44 | PN ---
Psychiatric Progress Note Vital Signs: Vital Signs Period Temp Pulse Resp BP Sys/Waller Pulse Ox Last 24 Hr 97.4 F 81 18-20 108/81 Date of Session: 06/21/17 Chief Complaint:: Discharge Note HPI: Patient addressing Opoid Dependence, Alcohol Dependence comorbid with Opoid Dependence on Agonist Therapy and Alcohol-Induced Sleep Disorder ROS: Asthma, Alcohol-related seizure were medically managed Current Medications: Active Medications Generic Name Dose Route Start Last Admin Trade Name Freq PRN Reason Stop Dose Admin Acetaminophen 650 mg 06/07/17 22:08 Tylenol - PO Q4H PRN FEVER OR PAIN Al Hydroxide/Mg Hydroxide 30 ml 06/07/17 22:08 Mylanta Oral Suspension - PO Q6H PRN DYSPEPSIA Albuterol Sulfate 2 puff 06/07/17 22:08 Ventolin Hfa Inhaler - IH Q4H PRN ASTHMA Budesonide/Formoterol Fumarate 1 puff 06/08/17 10:00 06/20/17 21:50 Symbicort 160/4.5mcg - IH 1 puff BID COSTA Administration Diphenhydramine HCl 50 mg 06/07/17 22:08 06/20/17 21:49 Benadryl - PO 50 mg HSMR1 PRN Administration FOR ITCHING Eucalyptus/Menthol/Phenol/Sorbitol 1 each 06/07/17 22:08 Cepastat Lozenge - MM Q4H PRN SORE THROAT Guaifenesin 10 ml 06/07/17 22:08 Robitussin Dm - PO Q6H PRN COUGH Hydroxyzine Pamoate 50 mg 06/07/17 22:08 Vistaril - PO Q4H PRN AGITATION Ibuprofen 400 mg 06/07/17 22:08 Motrin - PO Q6H PRN PAIN Levetiracetam 500 mg 06/08/17 10:00 06/20/17 21:49 Keppra - PO 500 mg BID COSTA Administration Loperamide HCl 4 mg 06/07/17 22:08 Imodium - PO Q6H PRN DIARRHEA Magnesium Hydroxide 30 ml 06/07/17 22:08 06/12/17 10:09 Milk Of Magnesia - PO 30 ml DAILY PRN Administration CONSTIPATION Methadone HCl 40 mg/ Methadone 45 mg 06/20/17 06:00 06/20/17 05:52 HCl 5 mg PO 45 mg DAILY@0600 COSTA Administration Nicotine 14 mg 06/08/17 10:00 06/20/17 10:17 Nicoderm Patch - TD Not Given DAILY COSTA Nicotine Polacrilex 2 mg 06/07/17 22:08 06/19/17 10:14 Nicorette Gum - BUC 2 mg Q2H PRN Administration NICOTINE REPLACEMENT RX Pantoprazole Sodium 20 mg 06/08/17 10:00 06/20/17 10:16 Protonix - PO 20 mg DAILY COSTA Administration Multivit/Folic Acid/Iron 1 tab 06/08/17 10:00 06/20/17 10:16 Vitamins (Sjr) - PO 1 tab DAILY COSTA Administration Pseudoephedrine/Triprolidine 1 combo 06/07/17 22:08 Actifed - PO TID PRN NASAL CONGESTION Thiamine HCl 100 mg 06/08/17 22:00 06/20/17 21:49 Vitamin B1 - PO 100 mg HS COSTA Administration Trazodone HCl 100 mg 06/08/17 22:00 06/20/17 21:49 Desyrel - PO 100 mg HS COSTA Administration Trimethobenzamide HCl 200 mg 06/21/17 03:27 06/21/17 03:33 Tigan Injection - IM 200 mg Q8H PRN Administration NAUSEA Current Side Effect: No Lab tests ordered: Yes Lab tests reviewed: Yes Provider note:: Patient will complete this program on . She has met his treatment goals and will continue to address his issues in outpatient treatment at [facility]. Told ad copy writer that from her participation in this program, she has learned that she has to owens her thinking and lifestyle in order to maintain abstinence. She responded well to Trazadone 100 mg po HS for insomnia. Scripts for 30 days supply of medication will be electronically transmitted to [facility] at [address] [place] [address]. She is stable for discharge on on 06/22/17 Total face to face time:: 35 Mental Status Exam - Mental Status Exam Alert and Oriented to: Time, Place, Person Cognitive Function: Fair Patient Appearance: Well Groomed Mood: Hopeful, Euthymic Affect: Appropriate Patient Behavior: Cooperative Speech Pattern: Clear Voice Loudness: Normal Thought Process: Intact, Goal Oriented Thought Disorder: Not Present Hallucinations: Denies Suicidal Ideation: Denies Homicidal Ideation: Denies Insight/Judgement: Fair Sleep: Poorly Appetite: Good Muscle strength/Tone: Normal Gait/Station: Normal Psychiatric Treatment Plan - Problem List (1) Opioid dependence Current Visit: Yes (2) Alcohol dependence Current Visit: Yes (3) Opioid dependence on agonist therapy Current Visit: Yes (4) Nicotine dependence Current Visit: Yes (5) Alcohol-induced sleep disorder Current Visit: No (6) Drug withdrawal seizure Current Visit: No Qualifiers: Complication of substance-induced condition: with unspecified complication Qualified Code(s): F19.239 - Other psychoactive substance dependence with withdrawal, unspecified; F19.239 - Other psychoactive substance dependence with withdrawal, unspecified; F19.239 - Other psychoactive substance dependence with withdrawal, unspecified; R56.9 - Unspecified convulsions; R56.9 - Unspecified convulsions; R56.9 - Unspecified convulsions; R56.9 - Unspecified convulsions (7) Asthma Current Visit: No Qualifiers: Initial treatment plan: Patient is discharged tomorrow and referred to [facility] for outpatient treatment
[2017-06-21] MEDS: levETIRAcetam 500 MG TABLET (FP) PO SCH ×2 (10:46→21:40)
[2017-06-21] MEDS: PANTOPRAZOLE 20 MG TABLET (FP) PO SCH (10:46)
[2017-06-21] MEDS: PRENATAL VITAMINS W/ FOLIC ACID TABLET (FP) PO SCH (10:46)
[2017-06-21] MEDS: NICOTINE 14 MG/24 HOURS TOPICAL PATCH TD SCH (10:47)
[2017-06-21] MEDS: METHADONE 40 MG, METHADONE 5 MG PO SCH (11:33)
[2017-06-21] MEDS: traZODone HCL 100 MG TABLET (FP) PO SCH (21:40)
[2017-06-21] MEDS: THIAMINE HCL 100 MG TABLET (FP) PO SCH (21:40)
[2017-06-22] MEDS ORDERED: METHADONE HCL 40 MG DISPERSABLE TABLET ONE (04:05)
[2017-06-22] MEDS ORDERED: METHADONE HCL 5 MG TABLET ONE (04:05)
[2017-06-22] MEDS: METHADONE 40 MG, METHADONE 5 MG PO SCH (06:18)
[2017-06-22 07:19] VITALS: BP 109/75; PULSE 69; TEMP 97.4
[2017-06-22] MEDS: PRENATAL VITAMINS W/ FOLIC ACID TABLET (FP) PO SCH (09:08)
[2017-06-22] MEDS: levETIRAcetam 500 MG TABLET (FP) PO SCH (09:08)
[2017-06-22] MEDS: PANTOPRAZOLE 20 MG TABLET (FP) PO SCH (09:09)
[2017-06-22] MEDS: NICOTINE 14 MG/24 HOURS TOPICAL PATCH TD SCH (09:09)
== END 2017-06-22 09:45 | disposition home or self-care (01) | DRG 772 ==
LOC: YASAS 14:32 → Y3W 22:36
PROVIDERS: ADMIT Psychiatry & Neurology Psychiatry; ATTEND Psychiatry & Neurology Psychiatry
PROC: HZ42ZZZ Group Counseling for Substance Abuse Treatment, Cognitive-Behavioral (ICD-10-PCS; principal; 2017-06-07)
DX: F11.20 Opioid dependence, uncomplicated (principal); F10.282 Alcohol dependence with alcohol-induced sleep disorder; F14.20 Cocaine dependence, uncomplicated; F17.210 Nicotine dependence, cigarettes, uncomplicated; J45.909 Unspecified asthma, uncomplicated; Z86.69 Personal history of other diseases of the nervous system and sense organs
CPT/HCPCS: 36415; 80053; 81003; 81015; 87086; 93005; 93010